=== PATIENT | female | born 2000 | race Caucasian/White ===

== ENCOUNTER 2019-02-02 18:47 | Emergency (ER) | payer OTHER ==
--- NOTE | 2019-02-02 19:38 | ER Document Report ---
ED Medical Screen (RME) - General Chief Complaint: Abdominal Pain Stated Complaint: ABDOMINAL PAIN Time Seen by Provider: 02/02/19 19:31 Notes: 18-year-old female patient learned she was 2 weeks ago. States she has had lower abdominal pain and cramping for 10 days without bleeding. She cannot get into the [facility] to be seen so she came here to get an ultrasound. Last menstrual period was 12/13/2018. She is A0. I have greeted and performed a rapid initial assessment of this patient. A comprehensive ED assessment and evaluation of the patient, analysis of test results and completion of the medical decision making process will be conducted by additional ED providers. - Related Data Allergies/Adverse Reactions: No Known Allergies Allergy (Unverified 02/02/19 18:50) Past Medical History - Social History Frequency of alcohol use: None Drug Abuse: None Renal/ Medical History: Denies: Hx Peritoneal Dialysis Physical Exam - Vital signs Vitals: Temp Pulse Resp BP Pulse Ox 98.9 F 91 H 20 114/81 98 02/02/19 18:52 02/02/19 18:52 02/02/19 18:52 02/02/19 18:52 02/02/19 18:52 Course - Vital Signs Vital signs: Temp Pulse Resp BP Pulse Ox 98.9 F 91 H 20 114/81 98 02/02/19 18:52 02/02/19 18:52 02/02/19 18:52 02/02/19 18:52 02/02/19 18:52
[2019-02-02 20:14] LABS: ABSOLUTE EOSINOPHILS # (AUTO) 0.1 10^3/uL (0.0-0.6); ABSOLUTE LYMPHOCYTES (AUTO) 2.5 10^3/uL (0.5-4.7); ABSOLUTE MONOCYTES (AUTO) 0.5 10^3/uL (0.1-1.4); BASOPHILS % (AUTO) 0.6 % (0-2); HEMATOCRIT 35.4 % (36.0-47.0); HEMOGLOBIN 12.1 g/dL (12.0-15.5); LYMPHOCYTES % (AUTO) 34.8 % (13-45); MEAN CORPUSCULAR HEMOGLOBIN 30.1 pg (27.0-33.4); MEAN CORPUSCULAR HGB CONC 34.3 g/dL (32.0-36.0); MEAN CORPUSCULAR VOLUME 88 fl (80-97); MONOCYTES % (AUTO) 7.1 % (3-13); PLATELET COUNT 282 10^3/uL (150-450); RED BLOOD COUNT 4.04 10^6/uL (3.72-5.28); RED CELL DISTRIBUTION WIDTH 13.2 % (11.5-14.0); SEGMENTED NEUTROPHILS % (AUTO) 55.5 % (42-78); TOTAL CELLS COUNTED % (AUTO) 100 %; WHITE BLOOD COUNT 7.3 10^3/uL (4.0-10.5)
[2019-02-02 20:31] LABS: ALANINE AMINOTRANSFERASE 34 U/L (5-35); ALBUMIN 3.6 g/dL (3.7-5.6); ALKALINE PHOSPHATASE 45 U/L (50-135); ANION GAP 9 (5-19); ASPARTATE AMINO TRANSFERASE 16 U/L (5-30); BILIRUBIN,DIRECT 0.1 mg/dL (0.0-0.4); BILIRUBIN,TOTAL 0.1 mg/dL (0.2-1.3); BLOOD UREA NITROGEN 11 mg/dL (7-20); CALCIUM 9.4 mg/dL (8.4-10.2); CARBON DIOXIDE 27 mmol/L (22-30); CHLORIDE 102 mmol/L (98-107); GLUCOSE 90 mg/dL (75-110); POTASSIUM 3.8 mmol/L (3.6-5.0); SODIUM 138.2 mmol/L (137-145); TOTAL PROTEIN 6.7 g/dL (6.3-8.2)
--- NOTE | 2019-02-02 22:11 | ER Document Report ---
ED General - General Chief Complaint: Abdominal Pain Stated Complaint: ABDOMINAL PAIN Time Seen by Provider: 02/02/19 19:31 Mode of Arrival: Ambulatory Information source: Patient TRAVEL OUTSIDE OF THE [place] IN LAST 30 DAYS: No - HPI Patient complains to provider of: Left lower abdominal cramping Onset: Other - About 10 days ago Onset/Duration: Intermittent Quality of pain: Cramping Severity: Severe Pain Level: 4 Associated symptoms: denies: Chills, Fever Exacerbated by: Denies Relieved by: Denies Similar symptoms previously: No Recently seen / treated by doctor: No Notes: 18-year-old female 2 para 1 here with left lower abdominal pelvic cramping which is been intermittent for the past 10 days. Patient is not having any vaginal bleeding. She thinks that she is about 8 weeks along in her second . Has not seen OB yet. No fevers or shaking chills. No dysuria. No vaginal discharge. No flank pain. No nausea vomiting or diarrhea - Related Data Allergies/Adverse Reactions: No Known Allergies Allergy (Unverified 02/02/19 18:50) Past Medical History - General Information source: Patient - Social History Smoking Status: Current Every Day Smoker Frequency of alcohol use: None Drug Abuse: None Family History: Reviewed & Not Pertinent Patient has suicidal ideation: No Patient has homicidal ideation: No Renal/ Medical History: Denies: Hx Peritoneal Dialysis Review of Systems - Review of Systems Notes: Constitutional: No fevers. No chills. EENT: No eye redness. No eye pain. No ear pain. No sore throat. Cardiovascular: No chest pain. No palpitations. Respiratory: No cough. No shortness of breath. No respiratory distress. Gastrointestinal: No abdominal pain. No nausea, vomiting, or diarrhea. Genitourinary: Positive pelvic cramping Musculoskeletal: Atraumatic. No swelling. No deformities. Skin: No rash or lesions. Lymphatic: No swollen lymph nodes. Neurologic: No headache. No syncope. Psychiatric: No suicidal or homicidal ideation. Physical Exam - Vital signs Vitals: Temp Pulse Resp BP Pulse Ox 98.9 F 91 H 20 114/81 98 02/02/19 18:52 02/02/19 18:52 02/02/19 18:52 02/02/19 18:52 02/02/19 18:52 - Notes Notes: General: Well-developed, well-nourished. In no acute distress. Non-toxic appearing. Cardiac: Well-perfused. Regular rate and rhythm. No murmurs, rubs, or gallops. Pulmonary: No respiratory distress. No cyanosis. Bilateral lung fiels are clear to auscultation. Abdominal: Non-distended. Non-rigid. Bowels sounds are present in all four quadrants. No guarding or rebound. HEENT: Head is atraumatic. Conjunctivae not reddened. No tearing. PERRL. EOMI. Orbits atraumatic. No periorbital swelling or erythema. Oropharynx is without erythema, swelling, or exudates. Neck: Supple. No adenopathy. No meningismus. Dermatologic: Warm with good turgor. No rash. Atraumatic. Chest: Atraumatic. No chest wall tenderness to palpation. Musculoskeletal: Moves all extremities well. No range of motion deficits. no muscular or joint tenderness. No paraspinal muscle tenderness. no midline spinal tenderness or step-off. Genitourinary: Examination deferred per patient request Neurologic: No gross neurologic deficits. Psychiatric: Normal mood. Course - Re-evaluation Re-evalutation: 02/02/19 22:10 Patient is relatively comfortable right now. Ultrasound results are pending. Some labs are still pending. Obvious differential at this time is uneventful intrauterine versus ectopic - Vital Signs Vital signs: Temp Pulse Resp BP Pulse Ox 98.9 F 91 H 20 114/81 98 02/02/19 18:52 02/02/19 18:52 02/02/19 18:52 02/02/19 18:52 02/02/19 18:52 - Laboratory Result Diagrams: 02/02/19 19:53 02/02/19 19:53 Laboratory results interpreted by me: 02/02/19 02/02/19 19:53 19:53 Hct 35.4 L Total Bilirubin 0.1 L Alkaline Phosphatase 45 L Albumin 3.6 L Beta HCG, Quant 7772.60 H - Consults dr mi-ob Time consulted: 23:20 Reason for consultation: 02/02/19 23:20 abnl ob us Consulted provider: follow-up in office - Would like to see the patient either tomorrow or no later than Thursday for repeat ultrasound. Discharge - Discharge Clinical Impression: Abdominal cramping, Intrauterine Condition: Good Disposition: HOME, SELF-CARE Instructions: Abdominal Pain ([facility]), Pelvic Pain in ([facility]) Additional Instructions: Please be sure to set up an appointment in the office of Dr. Mi who is on- call for obstetrics. He wants to see you on and no later than Thursday. Referrals: GABBY MI MD [ACTIVE STAFF] - Follow up tomorrow
--- NOTE | 2019-02-02 22:43 | RADIOLOGY REPORT (SQ) ---
EXAM DESCRIPTION: US TRANSVAGINAL COMPLETED DATE/TME: 02/02/2019 19:37 CLINICAL HISTORY: 18 years, Female, LMP 1-28-19 abdominal pain, cramping. Findings: Uterus is retroverted and measures 8.3 x 6.3 x 5.5 cm. Cervix measures 2.7 cm. A gestational sac is suspected in the uterus. However, there is no pole identified. Right ovary measures 2.7 x 1.5 x 1.9 cm. Left ovary measures 3.7 x 3.0 x 3.4 cm. In the left adnexa, there is moderate free fluid. There is also a complex cystic lesion which may represent a gestational sac with a pole measuring five weeks and five days. No heart rate is identified. Possible yolk sac in this region as well. IMPRESSION: Possible left adnexal ectopic with no heart tones identified. Possible early IUP or spontaneous . Recommend correlation with beta-hCG levels.
[2019-02-02 23:45] VITALS: BP 116/80
== END 2019-02-02 23:46 | disposition home or self-care (01) ==
LOC: ER 18:47
DX: O26.899 Other specified pregnancy related conditions, unspecified trimester (principal); R10.2 Pelvic and perineal pain; O99.330 Smoking (tobacco) complicating pregnancy, unspecified trimester; Z3A.00 Weeks of gestation of pregnancy not specified
CPT/HCPCS: 36415; 76817; 80053; 84702; 85025; 86900; 86901; 99284

== ENCOUNTER 2019-08-13 22:39 | Outpatient (CLI) | payer OTHER ==
[2019-08-14 00:52] LABS: APPEARANCE,URINE CLOUDY; BILIRUBIN,URINE NEGATIVE (NEGATIVE); CALCIUM OXALATE CRYSTALS,URINE FEW /HPF; GLUCOSE, URINE NEGATIVE (NEGATIVE); KETONES,URINE NEGATIVE (NEGATIVE); LEUKOCYTE ESTERASE,URINE TRACE (NEGATIVE); NITRITE,URINE NEGATIVE (NEGATIVE); PROTEIN,URINE NEGATIVE (NEGATIVE); URINE SPECIFIC GRAVITY 1.021
[2019-08-14 00:53] LABS: COLOR,URINE DARK YELLOW
[2019-08-14 01:10] LABS: URINE AMPHETAMINES SCREEN NEGATIVE; URINE BARBITURATES SCREEN NEGATIVE; URINE BENZODIAZEPINES SCREEN NEGATIVE; URINE COCAINE SCREEN NEGATIVE; URINE MARIJUANA (THC) SCREEN NEGATIVE; URINE METHADONE SCREEN NEGATIVE; URINE PHENCYCLIDINE SCREEN NEGATIVE
--- NOTE | 2019-08-14 01:12 | Non Stress Test Report ---
Non Stress Test Datetime Report Generated by CPN: 08/14/2019 01:12 DEMOGRAPHIC EGA NST: 33.2 INDICATION Indication for Study: Other Indication for Study (NST) Other: labor check MONITORING Monitor Explained: Monitor Explained; Test Explained; Patient Verbalized Understanding Time on Monitor: 08/13/2019 22:59 Time off Monitor: 08/14/2019 00:45 NST Duration: 106 NST INTERVENTIONS NST Interventions: PO Hydration Physician Notified NST: Drake BABY A: [id number] BABY A Movement : Present Contraction Frequency : occ FHR Baseline : 120 Accelerations : 15X15 Decelerations : None Variability : Moderate 6-25bpm NST Review: Meets Criteria for Reactive NST NST Review and Verified By : Ángel Yin, RN NST Results: Reactive NST REPORT Report Trigger: Send Report
== END 2019-08-14 01:03 | disposition home or self-care (01) ==
LOC: LC 22:39
PROVIDERS: ATTEND Obstetrics & Gynecology
PROC: 4A1HXCZ Monitoring of Products of Conception, Cardiac Rate, External Approach (ICD-10-PCS; principal; 2019-08-13)
DX: O47.03 False labor before 37 completed weeks of gestation, third trimester (principal); Z3A.33 33 weeks gestation of pregnancy
CPT/HCPCS: 59025; 80307; 81001

== ENCOUNTER 2019-09-07 20:31 | Outpatient (CLI) | payer OTHER ==
[2019-09-07 21:25] LABS: APPEARANCE,URINE SLIGHTLY-CLOUDY; BILIRUBIN,URINE SMALL (NEGATIVE); COLOR,URINE AMBER; GLUCOSE, URINE NEGATIVE (NEGATIVE); KETONES,URINE TRACE mg/dL (NEGATIVE); LEUKOCYTE ESTERASE,URINE SMALL (NEGATIVE); NITRITE,URINE NEGATIVE (NEGATIVE); PROTEIN,URINE 30 mg/dL (NEGATIVE); URINE SPECIFIC GRAVITY 1.033
--- NOTE | 2019-09-07 21:32 | Non Stress Test Report ---
Non Stress Test Datetime Report Generated by CPN: 09/07/2019 21:32 DEMOGRAPHIC EGA NST: 36.6 INDICATION Indication for Study: Other - Please document "Reason for NST Other" in box below. Indication for Study (NST) Other: lc VITAL SIGNS Temperature - NST: 98.3 RESP - NST: 15 MONITORING Monitor Explained: Monitor Explained; Test Explained; Patient Verbalized Understanding Time on Monitor: 09/07/2019 21:10 Time off Monitor: 09/07/2019 21:31 NST Duration: 21 NST INTERVENTIONS NST Interventions: PO Hydration; Reposition Patient Physician Notified NST: Dr Mccullough BABY A: [id number] BABY A Movement : Present Contraction Frequency : irr FHR Baseline : 120 Accelerations : 15X15 Decelerations : None Variability : Moderate 6-25bpm NST Review: Meets Criteria for Reactive NST NST Review and Verified By : Samantha Ayala RN NST Results: Reactive NST REPORT Report Trigger: Send Report
[2019-09-07 21:37] LABS: URINE AMPHETAMINES SCREEN NEGATIVE; URINE BARBITURATES SCREEN NEGATIVE; URINE BENZODIAZEPINES SCREEN NEGATIVE; URINE MARIJUANA (THC) SCREEN NEGATIVE; URINE METHADONE SCREEN NEGATIVE; URINE PHENCYCLIDINE SCREEN NEGATIVE
[2019-09-07 21:53] LABS: URINE COCAINE SCREEN NEGATIVE
== END 2019-09-07 22:19 | disposition home or self-care (01) ==
LOC: LC 20:31
PROVIDERS: ATTEND Obstetrics & Gynecology
PROC: 4A1HXCZ Monitoring of Products of Conception, Cardiac Rate, External Approach (ICD-10-PCS; principal; 2019-09-07)
DX: O47.03 False labor before 37 completed weeks of gestation, third trimester (principal); Z3A.36 36 weeks gestation of pregnancy
CPT/HCPCS: 59025; 80307; 81005; 84112

== ENCOUNTER 2019-09-13 19:12 | Outpatient (CLI) | payer OTHER ==
[2019-09-13 19:48] LABS: APPEARANCE,URINE CLEAR; BILIRUBIN,URINE NEGATIVE (NEGATIVE); COLOR,URINE STRAW; GLUCOSE, URINE NEGATIVE (NEGATIVE); KETONES,URINE NEGATIVE (NEGATIVE); LEUKOCYTE ESTERASE,URINE NEGATIVE (NEGATIVE); NITRITE,URINE NEGATIVE (NEGATIVE); PROTEIN,URINE NEGATIVE (NEGATIVE); URINE SPECIFIC GRAVITY 1.002; UROBILINOGEN,URINE NEGATIVE mg/dL (<2.0)
[2019-09-13 20:04] LABS: URINE AMPHETAMINES SCREEN NEGATIVE; URINE BARBITURATES SCREEN NEGATIVE; URINE BENZODIAZEPINES SCREEN NEGATIVE; URINE COCAINE SCREEN NEGATIVE; URINE MARIJUANA (THC) SCREEN NEGATIVE; URINE METHADONE SCREEN NEGATIVE; URINE PHENCYCLIDINE SCREEN NEGATIVE
--- NOTE | 2019-09-13 20:19 | Non Stress Test Report ---
Non Stress Test Datetime Report Generated by CPN: 09/13/2019 20:19 DEMOGRAPHIC EGA NST: 37.5 INDICATION Indication for Study: Ordered by Provider MONITORING Monitor Explained: Monitor Explained; Test Explained; Patient Verbalized Understanding Time on Monitor: 09/13/2019 19:23 Time off Monitor: 09/13/2019 20:13 NST Duration: 50 NST INTERVENTIONS NST Interventions: PO Hydration Physician Notified NST: Dr. Vincent BABY A: [id number] BABY A Movement : Present Contraction Frequency : irregular FHR Baseline : 125 Accelerations : 15X15 Decelerations : None Variability : Moderate 6-25bpm NST Review: Meets Criteria for Reactive NST NST Review and Verified By : SUMANTH Alex Results: Reactive NST REPORT Report Trigger: Send Report
== END 2019-09-13 21:30 | disposition home or self-care (01) ==
LOC: LC 19:12
PROVIDERS: ATTEND Student in an Organized Health Care Education/Training Program
PROC: 4A1HXCZ Monitoring of Products of Conception, Cardiac Rate, External Approach (ICD-10-PCS; principal; 2019-09-13)
DX: O47.1 False labor at or after 37 completed weeks of gestation (principal); Z3A.37 37 weeks gestation of pregnancy
CPT/HCPCS: 59025; 80307; 81005; 84112

== ENCOUNTER 2019-09-16 10:37 | Outpatient (CLI) | payer OTHER ==
[2019-09-16 11:16] LABS: APPEARANCE,URINE SLIGHTLY-CLOUDY; BILIRUBIN,URINE NEGATIVE (NEGATIVE); COLOR,URINE YELLOW; GLUCOSE, URINE NEGATIVE (NEGATIVE); KETONES,URINE NEGATIVE (NEGATIVE); LEUKOCYTE ESTERASE,URINE SMALL (NEGATIVE); NITRITE,URINE NEGATIVE (NEGATIVE); PROTEIN,URINE NEGATIVE (NEGATIVE); URINE SPECIFIC GRAVITY 1.014; UROBILINOGEN,URINE NEGATIVE mg/dL (<2.0)
[2019-09-16 11:31] LABS: URINE AMPHETAMINES SCREEN NEGATIVE; URINE BARBITURATES SCREEN NEGATIVE; URINE BENZODIAZEPINES SCREEN NEGATIVE; URINE COCAINE SCREEN NEGATIVE; URINE MARIJUANA (THC) SCREEN NEGATIVE; URINE METHADONE SCREEN NEGATIVE; URINE PHENCYCLIDINE SCREEN NEGATIVE
--- NOTE | 2019-09-16 11:46 | Non Stress Test Report ---
Non Stress Test Datetime Report Generated by CPN: 09/16/2019 11:46 DEMOGRAPHIC EGA NST: 38.1 INDICATION Indication for Study: Ordered by Provider MONITORING Monitor Explained: Monitor Explained; Test Explained; Patient Verbalized Understanding Time on Monitor: 09/16/2019 10:53 NST INTERVENTIONS NST Interventions: PO Hydration Physician Notified NST: K. Hobbs CNM on unit, reviewed fht BABY A: [id number] BABY A Movement : Present Contraction Frequency : 0 FHR Baseline : 125 Accelerations : 15X15 Decelerations : None Variability : Moderate 6-25bpm NST Review: Meets Criteria for Reactive NST NST Review and Verified By : Yung Moore RN NST Results: Reactive NST REPORT Report Trigger: Send Report
== END 2019-09-16 11:48 | disposition home or self-care (01) ==
LOC: LC 10:37
PROVIDERS: ATTEND Obstetrics & Gynecology
PROC: 4A1HXCZ Monitoring of Products of Conception, Cardiac Rate, External Approach (ICD-10-PCS; principal; 2019-09-16)
DX: Z34.83 Encounter for supervision of other normal pregnancy, third trimester (principal); Z3A.38 38 weeks gestation of pregnancy
CPT/HCPCS: 59025; 80307; 81005; 84112

== ENCOUNTER 2019-09-28 21:32 | Inpatient (IN) | payer OTHER ==
[2019-09-28 22:18] LABS: APPEARANCE,URINE SLIGHTLY-CLOUDY; BILIRUBIN,URINE NEGATIVE (NEGATIVE); COLOR,URINE YELLOW; GLUCOSE, URINE NEGATIVE (NEGATIVE); KETONES,URINE NEGATIVE (NEGATIVE); LEUKOCYTE ESTERASE,URINE SMALL (NEGATIVE); NITRITE,URINE NEGATIVE (NEGATIVE); PROTEIN,URINE NEGATIVE (NEGATIVE); URINE SPECIFIC GRAVITY 1.011
[2019-09-28 22:35] LABS: URINE AMPHETAMINES SCREEN NEGATIVE; URINE BARBITURATES SCREEN NEGATIVE; URINE BENZODIAZEPINES SCREEN NEGATIVE; URINE COCAINE SCREEN NEGATIVE; URINE MARIJUANA (THC) SCREEN NEGATIVE; URINE METHADONE SCREEN NEGATIVE; URINE PHENCYCLIDINE SCREEN NEGATIVE
[2019-09-28] MEDS ORDERED: RINGERS SOLUTION,LACTATED 1,000 ML IV ONE (23:37)
--- NOTE | 2019-09-29 02:20 | RADIOLOGY REPORT (SQ) ---
CLINICAL HISTORY: nonreactive NST COMPARISON: None. TECHNIQUE: US BIOPHYSICAL PROFILE WITHOUT NON STRESS TEST on 09/29/2019 12:00 AM BIOFUELS PRODUCTION TECHNICIAN FINDINGS: heart rate is 139 bpm. There is a single pocket of amniotic fluid measuring 2.4 x 3.3 cm. IMPRESSION: Biophysical profile 06/23.
[2019-09-29] MEDS ORDERED: RINGERS SOLUTION,LACTATED 1,000 ML IV PRN (02:42)
[2019-09-29] MEDS ORDERED: MISOPROSTOL 0.2 MG TABLET ONE (02:47)
[2019-09-29] MEDS ORDERED: LIDOCAINE 1% INJ-PF (10 MG/ML) 30 ML SDV ONE (02:47)
[2019-09-29] MEDS ORDERED: OXYTOCIN 10 UNIT/ML VIAL ONE (02:47)
[2019-09-29] MEDS ORDERED: OXYTOCIN/NORMAL SALINE 20 UNIT/1,000 ML RTUINJ ONE (02:48)
[2019-09-29 03:12] LABS: ABSOLUTE EOSINOPHILS # (AUTO) 0.1 10^3/uL (0.0-0.6); ABSOLUTE LYMPHOCYTES (AUTO) 2.3 10^3/uL (0.5-4.7); ABSOLUTE MONOCYTES (AUTO) 0.5 10^3/uL (0.1-1.4); ABSOLUTE NEUT (AUTO) 5.5 10^3/uL (1.7-8.2); BASOPHILS % (AUTO) 0.5 % (0-2); EOSINOPHILS % (AUTO) 1.1 % (0-6); HEMATOCRIT 33.9 % (36.0-47.0); HEMOGLOBIN 11.4 g/dL (12.0-15.5); LYMPHOCYTES % (AUTO) 27.5 % (13-45); MEAN CORPUSCULAR HEMOGLOBIN 29.3 pg (27.0-33.4); MEAN CORPUSCULAR HGB CONC 33.7 g/dL (32.0-36.0); MEAN CORPUSCULAR VOLUME 87 fl (80-97); PLATELET COUNT 246 10^3/uL (150-450); RED BLOOD COUNT 3.89 10^6/uL (3.72-5.28); RED CELL DISTRIBUTION WIDTH 15.7 % (11.5-14.0); SEGMENTED NEUTROPHILS % (AUTO) 64.9 % (42-78); TOTAL CELLS COUNTED % (AUTO) 100 %; WHITE BLOOD COUNT 8.5 10^3/uL (4.0-10.5)
--- NOTE | 2019-09-29 03:20 | Admission Physical ---
Datetime Report Generated by CPN: 09/29/2019 03:19 CURRENT ADMISSION Chief Complaint: Uterine Contractions Indication for Induction: Not Applicable Admit Impression : Term, Intrauterine ; Ruptured Membranes Admit Plan: Admit to Unit; Initiate Labor Protocol ALLERGIES Medication Allergies: No Medication Allergies: No Known Allergies (09/28/2019) Latex: No Latex Allergies Food Allergies: no Environmental Allergies: no OBSTETRICAL HISTORY EDC: 09/29/2019 00:00 : 2 Para: 1 Term: 1 : 0 SAB: 0 IAB: 0 Ectopic: 0 Livin Cesareans: 0 VBACs: 0 Multiple Births: 0 Gestational Diabetes: No Rh Sensitization: No Incompetent Cervix: No GHAZALA: No Infertility: No ART Treatment: No Uterine Anomaly: No IUGR: No Hx Previous C/S: No Macrosomia: No Hx Loss/Stillborn: No PIH: No Hx : No Placenta Previa/Abruption: No Depression/PP Depression: No PTL/PROM: No Post Hemorrhage: No Current Procedures: Ultrasound; NST Obstetrical History Comments: g1- 41 weeks 07/04 - - epidural g2 - current - close interval SEE RECORDS Alcohol: No Marijuana : No Cocaine: No Other Illicit Drugs: No Cigarettes: Former Smoker. [id number] MEDICAL HISTORY Diabetes: No Blood Transfusion: No Pulmonary Disease (Asthma, TB): No Breast Disease: No Hypertension: No Flume Maker Surgery: No Heart Disease: Yes Hosp/Surgery: No Autoimmune Disorder: No Anesthetic Complications: No Kidney Disease: No Abnormal Pap Smear: No Neuro/Epilepsy: No Psychiatric Disorders: No Other Medical Diseases: No Hepatitis/Liver Disease: No Significant Family History: No Varicosities/Phlebitis: No Trauma/Violence : No Thyroid Dysfunction: No Medical History Comments: rhuematic fever as a child - takes PCN BID (Annotations: Data stored by [facility] on behalf of user) INFECTIOUS HISTORY Gonorrhea: No Genital Herpes: No Chlamydia: No Tuberculosis: No Syphilis: No Hepatitis: No HIV/AIDS Exposure: No Rash or Viral Illness: No HPV: No PHYSICAL EXAM General: Normal HEENT: Normal Neurologic: Normal Thyroid: Normal Heart: Normal Lungs: Normal Breast: Normal Back: Normal Abdomen: Normal Genitourinary Exam: Normal Extremities: Normal DTRs: Normal Pelvic Type: Adequate Vital Signs: Reviewed; Within Normal Limits VAGINAL EXAM Dilatation: 5 Effacement: 90 Station: -2 Contraction Comments: irregular MEMBRANES Pooling: Negative Membranes: Ruptured Amniotic Fluid Color: Clear FETUS A EGA: 40.0 Monitoring: External US FHR- Baseline: 130s Variability: Moderate 6-25bpm Accelerations: 10X10 Decelerations: None FHR Category: Category I Admit Comment: w/IUP@ 40.0 presented to L_D c/o contractions. FHTs were not reactive therefore she underwent a BPP, which was 06/23. Prior to discharge, she had SROM. Clear fluid was noted. She is GBS Neg. PLANS FOR LABOR AND DELIVERY Labor and Delivery: None Pain Management: Epidural Feeding Preference: Formula Benefit of Breast Feed Discussed: Yes Circumcision: N/A INFORMED CONSENT Signature: with User ID: [email or web address]
[2019-09-29] MEDS ORDERED: EPHEDRINE SULFATE INJ 50 MG/1 ML AMPULE ONE (03:27)
[2019-09-29] MEDS ORDERED: FENTANYL/BUPIVACAINE/NS/PF 300 MCG/150 ML RTUINJ EPI ONE (03:28)
[2019-09-29] MEDS ORDERED: BUPIVACAINE HCL 0.25 % INJ/PF (2.5 MG/1 ML) 30 ML VIAL ONE (03:28)
[2019-09-29] MEDS ORDERED: FENTANYL CITRATE INJ/PF 100 MCG/2 ML AMPUL ONE (03:44)
[2019-09-29] MEDS ORDERED: OXYTOCIN/NORMAL SALINE 20 UNIT/1,000 ML RTUINJ IV PRN (05:30)
[2019-09-29] MEDS ORDERED: DIPH/PERTUSS(ACELL)/TETANUS VAC/PF 0.5 ML SYR (>=10YO) IM PRN (05:30)
[2019-09-29] MEDS ORDERED: ACETAMINOPHEN WITH CODEINE #3 TABLET PO PRN ×2 (05:30)
[2019-09-29] MEDS ORDERED: ZOLPIDEM TARTRATE 5 MG TABLET PO PRN (05:30)
[2019-09-29] MEDS ORDERED: BENZOCAINE/MENTHOL AEROSOL SPRAY 56 ML TOP PRN (05:30)
[2019-09-29] MEDS ORDERED: DIBUCAINE 1% OINTMENT 56 GM TP PRN (05:30)
--- NOTE | 2019-09-29 07:16 | Delivery Summary ---
Del Sum A-C Datetime Report Generated by CPN: 09/29/2019 07:16 DELIVERY PERSONNEL DELIVERY PERSONNEL: [id number] Delivery Doctor:: Damaris Childers MD Labor and Delivery Nurse:: Samantha Ayala RNmanager floral Nurse:: Adri Elizabeth RN Lottery Clerk:: Belen Hernandez RN Nursery Nurse:: Nina Hernandez RN Biology Tutor/SENIOR ARCHITECTURAL DESIGNER: Berenice Adames, ST MATERNAL INFORMATION Delivery Anesthesia: Epidural Medications After Delivery: Pitocin Bolus-Please Comment Meds After Delivery Comment: Pitocin 20 units/1000 ml NSS Delivery QBL: 0 Maternal Complications: None Provider Comments: of a viable female at 0513 w/ an OA w/ nuchal cord x 1 presentation; APGARS 8, 9; no lacs LABOR SUMMARY EDC: 09/29/2019 00:00 No. Babies in Womb: 1 Attempted: No Labor Anesthesia: Epidural LABOR INFORMATION Reason for Induction: Not Applicable Onset of Labor: 09/29/2019 02:35 Complete Dilatation: 09/29/2019 05:01 Oxytocin: N/A Group B Beta Strep: negative Antibiotics # of Doses: 0 Steroids Given: None Reason Steroids Not Administered: Not Applicable MEMBRANES Membranes Rupture Method: Spontaneous Rupture of Membranes: 09/29/2019 02:35 Length of Rupture (hr): 2.63 Amniotic Fluid Color: Clear Amniotic Fluid Amount: Moderate Amniotic Fluid Odor: Normal STAGES OF LABOR Stage 1 hr: 2 Stage 1 min: 26 Stage 2 hr: 0 Stage 2 min: 12 Stage 3 hr: 0 Stage 3 min: 5 Total Time in Labor hr: 2 Total Time in Labor min: 43 VAGINAL DELIVERY Episiotomy: None Laceration #1: None Laceration Extension #1: N/A Laceration Repair: Not Applicable Sponge Count Correct: Yes Sharps Count Correct: Yes CSECTION DELIVERY Primary Indication: N/A Secondary Indication: N/A CSection Incidence: N/A Labor: N/A Elective: N/A CSection Incision: N/A BABY A INFORMATION Delivery Date/Time: 09/29/2019 05:13 Method of Delivery: Vaginal Born in Route : No : N/A Forceps: N/A Vacuum Extraction: N/A Shoulder Dystocia : No PRESENTATION/POSITION BABY A Presentation: Cephalic Cephalic Presentation: Vertex Vertex Position: OA Breech Presentation: N/A PLACENTA INFORMATION BABY A Placenta Delivery Time : 09/29/2019 05:18 Placenta Method of Delivery: Spontaneous Placenta Status: Delivered SCORES BABY A Heart Rate 1 min: >100 bpm Resp Effort 1 min: Good Cry Reflex Irritability 1 min: Cough or Sneeze or Pulls Away Muscle Tone 1 min: Active Motion Color 1 min: Blue/Pale Resuscitation Effort 1 min: Tactile Stimulation SCORE 1 MIN: 8 Heart Rate 5 min: >100 bpm Resp Effort 5 min: Good Cry Reflex Irritability 5 min: Cough or Sneeze or Pulls Away Muscle Tone 5 min: Active Motion Color 5 min: Body [place], Extremities Blue Resuscitation Effort 5 min: Tactile Stimulation SCORE 5 MIN: 9 INFANT INFORMATION BABY A Gestational Age at Delivery: 40.0 Gestational Status: Full Term- 39- 40.6 Weeks Outcome : Liveborn Infant Condition : Stable Sex: Female IDENTIFICATION BABY A Verification Date/Time: 09/29/2019 05:35 ID Band Number: [id number] Mother's Name Verified: Yes Infant RN Verifying Infant: , RN and KFay, RN WEIGHT/LENGTH BABY A Birthweight (gm): 3363 Infant Weight (lb): 7 Infant Weight (oz): 7 Infant Length (in): 19.00 Length (cm): 48.26 CORD INFORMATION BABY A No. Cord Vessels: 3 Nuchal Cord : Around Neck x1, Loose Cord Blood Taken: Yes-For Storage (Mom's Blood type +) Suction: None ASSESSMENT BABY A Infant Complications: None Physical Findings at Delivery: Within Normal Limits Skin to Skin: Yes Infant Care By: SUMANTH Castrejon Transferred To: Remains with Mother SIGNATURES Signature: with User ID: [email or web address]
[2019-09-29] MEDS: FERROUS SULFATE 325 MG TABLET PO SCH ×2 (11:00→18:28)
[2019-09-29] MEDS: SENNOSIDES/DOCUSATE 8.6-50 MG 1 EACH TABLET PO SCH (11:00)
[2019-09-29] MEDS: PRENATAL VITAMIN W DHA CAPSULE PO SCH (11:00)
[2019-09-29] MEDS: DOCUSATE SODIUM 100 MG CAPSULE PO SCH ×2 (11:00→18:27)
[2019-09-29] MEDS: IBUPROFEN 800 MG TABLET PO SCH ×3 (11:06→22:22)
[2019-09-30] MEDS: IBUPROFEN 800 MG TABLET PO SCH ×3 (05:42→22:39)
[2019-09-30 08:12] LABS: HEMATOCRIT 30.9 % (36.0-47.0); HEMOGLOBIN 10.3 g/dL (12.0-15.5); MEAN CORPUSCULAR HEMOGLOBIN 29.5 pg (27.0-33.4); MEAN CORPUSCULAR HGB CONC 33.5 g/dL (32.0-36.0); MEAN CORPUSCULAR VOLUME 88 fl (80-97); PLATELET COUNT 177 10^3/uL (150-450); RED CELL DISTRIBUTION WIDTH 15.8 % (11.5-14.0); WHITE BLOOD COUNT 7.7 10^3/uL (4.0-10.5)
[2019-09-30] MEDS: PRENATAL VITAMIN W DHA CAPSULE PO SCH (09:57)
[2019-09-30] MEDS: FERROUS SULFATE 325 MG TABLET PO SCH ×2 (09:57→18:11)
[2019-09-30] MEDS: DOCUSATE SODIUM 100 MG CAPSULE PO SCH ×2 (10:47→18:11)
[2019-09-30] MEDS: SENNOSIDES/DOCUSATE 8.6-50 MG 1 EACH TABLET PO SCH (10:47)
--- NOTE | 2019-09-30 12:45 | PDOC PROGRESS REPORT ---
Subjective-OB Progress Note for:: 09/30/19 Subjective: reports bleeding slowing, pain controlled with current meds, denies needs Physical Exam (OB) Vital Signs: Temp Pulse Resp BP Pulse Ox 97.7 F 69 14 115/84 98 09/30/19 07:39 09/30/19 07:39 09/30/19 07:39 09/30/19 07:39 09/30/19 07:39 Intake & Output 09/29/19 09/30/19 10/01/19 06:59 06:59 06:59 Weight 115 kg 115 kg - Abdomen Description: Soft, Round Hernia Present: No Fundal Description: Firm, Midline Fundal Height: u/u - u/2 - Abdominal Distension: No distension Tenderness: Nontender - Extremities Lower extremities: Chavez's sign - neg Calf: Normal, Nontender Objective-Diagnostic Laboratory: 09/30/19 07:28 09/30/19 07:28 WBC 7.7 RBC 3.50 L Hgb 10.3 L Hct 30.9 L MCV 88 MCH 29.5 MCHC 33.5 RDW 15.8 H Plt Count 177 Assessment and Plan(PN) - Assessment and Plan (1) Normal vaginal delivery Is this a current diagnosis for this admission?: Yes (2) Spontaneous onset of labor Is this a current diagnosis for this admission?: Yes - Time Spent with Patient Time with patient: Less than 15 minutes Medications reviewed and adjusted accordingly: Yes - Disposition Anticipated Discharge: Home Within: within 24 hours
[2019-10-01] MEDS: IBUPROFEN 800 MG TABLET PO SCH (06:18)
--- NOTE | 2019-10-01 08:48 | PDOC DISCHARGE SUMMARY ---
Impression - Admit/DC Date/PCP Admission Date/Primary Care Provider: 09/29/19 02:42 ISAAK OCHOA DO Discharge Date: 10/01/19 - Discharge Diagnosis (1) Normal vaginal delivery Is this a current diagnosis for this admission?: Yes (2) Spontaneous onset of labor Is this a current diagnosis for this admission?: Yes - Additional Information Discharge Activity: Balance Activity w/Rest, Non-Ambulatory Child Referrals: ISAAK MOJICA DO [Primary Care Provider] - Prescriptions: Ibuprofen [Motrin 800 mg Tablet] 800 mg PO Q8HP PRN #60 tablet PRN Reason: Home Medications: Vit,Calc76/Iron/Folic [Prenatabs Rx Tablet] 1 tab PO DAILY 09/07/19 Ibuprofen [Motrin 800 mg Tablet] 800 mg PO Q8HP PRN #60 tablet 10/01/19 HPI Gestational Age: 40 Reason(s) for Admission: Onset of Labor Procedures: NST Intrapartum Procedure(s): Spontaneous Vaginal Delivery Results Laboratory Results: WBC 7.7 10^3/uL (4.0-10.5) 09/30/19 07:28 RBC 3.50 10^6/uL (3.72-5.28) L 09/30/19 07:28 Hgb 10.3 g/dL (12.0-15.5) L 09/30/19 07:28 Hct 30.9 % (36.0-47.0) L 09/30/19 07:28 MCV 88 fl (80-97) 09/30/19 07:28 MCH 29.5 pg (27.0-33.4) 09/30/19 07:28 MCHC 33.5 g/dL (32.0-36.0) 09/30/19 07:28 RDW 15.8 % (11.5-14.0) H 09/30/19 07:28 Plt Count 177 10^3/uL (150-450) 09/30/19 07:28 Lymph % (Auto) 27.5 % (13-45) 09/29/19 02:55 [place] % (Auto) 6.0 % (3-13) 09/29/19 02:55 Eos % (Auto) 1.1 % (0-6) 09/29/19 02:55 Baso % (Auto) 0.5 % (0-2) 09/29/19 02:55 Absolute Neuts (auto) 5.5 10^3/uL (1.7-8.2) 09/29/19 02:55 Absolute Lymphs (auto) 2.3 10^3/uL (0.5-4.7) 09/29/19 02:55 Absolute Monos (auto) 0.5 10^3/uL (0.1-1.4) 09/29/19 02:55 Absolute Eos (auto) 0.1 10^3/uL (0.0-0.6) 09/29/19 02:55 Absolute Basos (auto) 0.0 10^3/uL (0.0-0.2) 09/29/19 02:55 Seg Neutrophils % 64.9 % (42-78) 09/29/19 02:55 Urine Color YELLOW 09/28/19 21:40 Urine Appearance SLIGHTLY-CLOUDY 09/28/19 21:40 Urine pH 6.0 (5.0-9.0) 09/28/19 21:40 Ur Specific [place] 1.011 09/28/19 21:40 Urine Protein NEGATIVE mg/dL (NEGATIVE) 09/28/19 21:40 Urine Glucose (UA) NEGATIVE mg/dL (NEGATIVE) 09/28/19 21:40 Urine Ketones NEGATIVE mg/dL (NEGATIVE) 09/28/19 21:40 Urine Blood NEGATIVE (NEGATIVE) 09/28/19 21:40 Urine Nitrite NEGATIVE (NEGATIVE) 09/28/19 21:40 Urine Bilirubin NEGATIVE (NEGATIVE) 09/28/19 21:40 Urine Urobilinogen 2.0 mg/dL (<2.0) H 09/28/19 21:40 Ur Leukocyte Esterase SMALL (NEGATIVE) H 09/28/19 21:40 Urine Ascorbic Acid NEGATIVE (NEGATIVE) 09/28/19 21:40 Urine Opiates Screen NEGATIVE 09/28/19 21:40 Urine Methadone Screen NEGATIVE 09/28/19 21:40 Ur Barbiturates Screen NEGATIVE 09/28/19 21:40 Ur Phencyclidine Scrn NEGATIVE 09/28/19 21:40 Ur Amphetamines Screen NEGATIVE 09/28/19 21:40 U Benzodiazepines Scrn NEGATIVE 09/28/19 21:40 Urine Cocaine Screen NEGATIVE 09/28/19 21:40 U Marijuana (THC) Screen NEGATIVE 09/28/19 21:40 RPR NONREACTIVE (NONREACTIVE) 09/29/19 02:55 Blood Type A POSITIVE 09/29/19 02:55 Antibody Screen NEGATIVE 09/29/19 02:55 Impressions: Stress Test 09/29/19 00:00 IMPRESSION: Biophysical profile 06/23. Plan Plan of Treatment: f/u 4 weeks at [facility] for PP exam
[2019-10-01] MEDS: PRENATAL VITAMIN W DHA CAPSULE PO SCH (09:02)
[2019-10-01] MEDS: FERROUS SULFATE 325 MG TABLET PO SCH (09:02)
[2019-10-01] MEDS: DOCUSATE SODIUM 100 MG CAPSULE PO SCH (09:03)
[2019-10-01 09:04] VITALS: BP 127/83
[2019-10-01] MEDS: SENNOSIDES/DOCUSATE 8.6-50 MG 1 EACH TABLET PO SCH (09:04)
== END 2019-10-01 14:07 | disposition home or self-care (01) | DRG 807 ==
LOC: LC 21:32 → LR 09-29 02:42 → 2S 09-29 08:00
PROVIDERS: ADMIT Obstetrics & Gynecology; ATTEND Obstetrics & Gynecology
PROC: 10E0XZZ Delivery of Products of Conception, External Approach (ICD-10-PCS; principal; 2019-09-29)
DX: O69.81X0 Labor and delivery complicated by cord around neck, without compression, not applicable or unspecified (principal); Z37.0 Single live birth; O62.3 Precipitate labor; Z3A.40 40 weeks gestation of pregnancy; Z79.2 Long term (current) use of antibiotics
CPT/HCPCS: 36415; 76819; 80307; 81005; 85025; 85027; 86592; 86850; 86900; 86901; J2590; J3010; J3490

== ENCOUNTER 2019-10-29 18:55 | Emergency (ER) | payer OTHER ==
--- NOTE | 2019-10-29 19:18 | ER Document Report ---
ED Medical Screen (RME) - General Stated Complaint: LEFT LEG PAIN/SWOLLEN Time Seen by Provider: 10/29/19 19:11 Primary Care Provider: ISAAK MOJICA DO [Primary Care Provider] - Follow up as needed Mode of Arrival: Wheelchair Information source: Patient Notes: This 19-year-old female presents emergency department with plaints of low back pain and left leg swelling and discoloration. Patient reports last week she had the Nexplanon implanted and they also put her on the control pill. She reports symptoms of low back pain difficulty voiding and leg swelling and discoloration started yesterday morning. Right leg feels numb now. Good pedal pulse noted. Denies history of PE or DVT. I have greeted and performed a rapid initial assessment of this patient. A comprehensive ED assessment and evaluation of the patient, analysis of test results and completion of the medical decision making process will be conducted by additional ED providers. Dictation of this chart was performed using voice recognition software; therefore, there may be some unintended grammatical errors. TRAVEL OUTSIDE OF THE [place] IN LAST 30 DAYS: No - Related Data Allergies/Adverse Reactions: No Known Allergies Allergy (Verified 10/29/19 19:07) Past Medical History Renal/ Medical History: Denies: Hx Peritoneal Dialysis Physical Exam - Vital signs Vitals: Temp Pulse Resp BP Pulse Ox 98.2 F 122 H 20 109/74 98 10/29/19 18:59 10/29/19 18:59 10/29/19 18:59 10/29/19 18:59 10/29/19 18:59 Course - Vital Signs Vital signs: Temp Pulse Resp BP Pulse Ox 98.2 F 122 H 20 109/74 98 10/29/19 18:59 10/29/19 18:59 10/29/19 18:59 10/29/19 18:59 10/29/19 18:59 Doctor's Discharge - Discharge Referrals: ISAAK MOJICA DO [Primary Care Provider] - Follow up as needed
[2019-10-29 20:12] LABS: ABSOLUTE EOSINOPHILS # (AUTO) 0.2 10^3/uL (0.0-0.6); ABSOLUTE LYMPHOCYTES (AUTO) 1.5 10^3/uL (0.5-4.7); ABSOLUTE MONOCYTES (AUTO) 0.5 10^3/uL (0.1-1.4); ABSOLUTE NEUT (AUTO) 6.5 10^3/uL (1.7-8.2); BASOPHILS % (AUTO) 0.5 % (0-2); EOSINOPHILS % (AUTO) 2.5 % (0-6); HEMATOCRIT 34.7 % (36.0-47.0); HEMOGLOBIN 11.7 g/dL (12.0-15.5); LYMPHOCYTES % (AUTO) 17.3 % (13-45); MEAN CORPUSCULAR HEMOGLOBIN 29.4 pg (27.0-33.4); MEAN CORPUSCULAR HGB CONC 33.9 g/dL (32.0-36.0); MEAN CORPUSCULAR VOLUME 87 fl (80-97); MONOCYTES % (AUTO) 5.5 % (3-13); PLATELET COUNT 286 10^3/uL (150-450); RED BLOOD COUNT 3.99 10^6/uL (3.72-5.28); RED CELL DISTRIBUTION WIDTH 15.4 % (11.5-14.0); SEGMENTED NEUTROPHILS % (AUTO) 74.2 % (42-78); TOTAL CELLS COUNTED % (AUTO) 100 %; WHITE BLOOD COUNT 8.7 10^3/uL (4.0-10.5)
[2019-10-29 20:28] LABS: ALBUMIN 3.9 g/dL (3.5-5.0); ALKALINE PHOSPHATASE 57 U/L (38-126); ANION GAP 12 (5-19); ASPARTATE AMINO TRANSFERASE 24 U/L (14-36); BILIRUBIN,DIRECT 0.1 mg/dL (0.0-0.4); BILIRUBIN,TOTAL 0.4 mg/dL (0.2-1.3); BLOOD UREA NITROGEN 8 mg/dL (7-20); CALCIUM 9.2 mg/dL (8.4-10.2); CARBON DIOXIDE 24 mmol/L (22-30); CHLORIDE 104 mmol/L (98-107); GLUCOSE 116 mg/dL (75-110); POTASSIUM 4.2 mmol/L (3.6-5.0); TOTAL PROTEIN 7.3 g/dL (6.3-8.2)
--- NOTE | 2019-10-29 20:52 | ER Document Report ---
ED Extremity Problem, Lower - General Chief Complaint: Leg Swelling Stated Complaint: LEFT LEG PAIN/SWOLLEN Time Seen by Provider: 10/29/19 19:11 Primary Care Provider: ISAAK MOJICA DO [Primary Care Provider] - Follow up as needed Mode of Arrival: Wheelchair Notes: 19-year-old female presents with left leg swelling and discoloration that started this morning. Patient states she has had some numbness starting from her upper top thigh down to her. Patient is also complaining of some difficulty with urinating. Patient denies any chest pain, shortness of breath, injury, fever. Patient was recently started on control last week and also had Nexplanon placed. Patient's sister and grandfather both have history of blood clots. Patient denies any personal history of DVT or PE. TRAVEL OUTSIDE OF THE [place] IN LAST 30 DAYS: No - Related Data Allergies/Adverse Reactions: No Known Allergies Allergy (Verified 10/29/19 19:07) Past Medical History - General Information source: Patient - Social History Smoking Status: Unknown if Ever Smoked Frequency of alcohol use: None Drug Abuse: None Family History: Reviewed & Not Pertinent Patient has suicidal ideation: No Patient has homicidal ideation: No Renal/ Medical History: Denies: Hx Peritoneal Dialysis Review of Systems - Review of Systems Notes: Constitutional: Negative for fever. HENT: Negative for sore throat. Eyes: Negative for visual changes. Cardiovascular: Negative for chest pain. Respiratory: Negative for shortness of breath. Gastrointestinal: Negative for abdominal pain, vomiting or diarrhea. Genitourinary: Positive for difficulty urinating. Negative for dysuria. Musculoskeletal: Positive for leg swelling and discoloration. Negative for back pain. Skin: Negative for rash. Neurological: Negative for headaches, weakness or numbness. 10 point ROS negative except as marked above and in HPI. Physical Exam - Vital signs Vitals: Temp Pulse Resp BP Pulse Ox 98.2 F 122 H 20 109/74 98 10/29/19 18:59 10/29/19 18:59 10/29/19 18:59 10/29/19 18:59 10/29/19 18:59 - Notes Notes: GENERAL: Well-appearing, well-nourished and in no acute distress. HEAD: Atraumatic, normocephalic. EYES: Extraocular movements intact, sclera anicteric, conjunctiva are normal. NECK: Normal range of motion, supple without lymphadenopathy or JVD. LUNGS: Breath sounds clear to auscultation bilaterally and equal. No wheezes rales or rhonchi. HEART: Regular rate and rhythm without murmurs, rubs or gallops. EXTREMITIES: Normal range of motion, no pitting. No clubbing or cyanosis. Left leg: Swelling noted to left leg, distal pedal pulses 2+, mild discoloration noted NEUROLOGICAL: Cranial nerves II through XII grossly intact. Normal speech, normal gait. PSYCH: Normal mood, normal affect. SKIN: Warm, Dry, normal turgor, no rashes or lesions noted. - Extremities Left calf in cm: 48 Right calf in cm: 45 Course - Re-evaluation Re-evalutation: 10/29/19 19-year-old female presents with left leg swelling that started this morning. Patient was recently started on control and a Nexplanon placed last week. Patient denies any chest pain or dyspnea. Patient's sister and grandfather both have had blood clots in the past. Patient denies any history of DVT or PE. Ultrasound was ordered. solar lab technician states DVT from common femoral to popliteal on the left. 10/29/19 20:54 Discussed results with pt and pt's . Pt requests to be transferred to [facility] if needing to be transferred. Pt's is [employer]. 10/29/19 21:[address] Dawson, radiologist, who states pt has extensive DVT which extends most likely into iliac vein. Dr. Dawson recommends transferring pt to a place where interventional radiology would be able to cons ider recanalizing the vein or placing stent. 10/29/19 21:05 Contacted [facility] to possibly initiate transfer if they have the resources available. 10/29/19 21:19 Discussed radiologist's recommendations with pt and pt's and pending transfer to [facility] and if not having resources possible transfer to either [facility] or [facility]. Pt and pt's voice understanding and a gree with plan of care. Also discussed with Dr. Ham, attending, who agrees with plan of care. 10/29/19 21:[address] Hayden, emergency medicine doctor, at [facility] who states they do not have IR or vascular capabilities. 10/29/19 21:47 Contacted [facility] to initiate transfer. 10/29/19 22:[address] Correa, medicine at [facility], who requested I talk to IR or vascular at [facility]. 10/29/19 22:[address] Stevie Zavala, vascular surgeon at [facility], who accepted to his service. Requesting maintenance fluids and keeping pt NPO. 10/29/19 22:33 Discussed transfer to [facility] and acceptance with pt and pt's who agree with plan of care. 10/30/19 03:03 Transport here. Pt's vitals WNL. Nontoxic, well appearing. Continues to be stable. - Vital Signs Vital signs: Temp Pulse Resp BP Pulse Ox 98.2 F 122 H 12 112/78 99 10/29/19 19:08 10/29/19 19:08 10/30/19 02:34 10/30/19 02:34 10/30/19 02:34 - Laboratory Result Diagrams: 10/29/19 19:46 10/29/19 19:46 Laboratory results interpreted by me: 10/29/19 10/29/19 10/29/19 19:46 19:46 22:55 Hgb 11.7 L Hct 34.7 L RDW 15.4 H Glucose 116 H Urine Protein 30 H Urine Blood MODERATE H Urine Urobilinogen 4.0 H Discharge - Discharge Clinical Impression: Deep vein thrombosis (DVT) of femoral vein of left lower extremity Qualifiers: Chronicity: acute Qualified Code(s): I82.412 - Acute embolism and thrombosis of left femoral vein Condition: Stable Disposition: [facility] Admitting Provider: Dr. Stevie Zavala Referrals: ISAAK MOJICA DO [Primary Care Provider] - Follow up as needed
[2019-10-29 20:55] LABS: INTERNATIONAL RATION (INR) 1.11; PROTHROMBIN TIME 14.3 SEC (11.4-15.4)
[2019-10-29 20:56] LABS: PARTIAL THROMBOPLASTIN TIME 29.9 SEC (23.5-35.8)
[2019-10-29] MEDS ORDERED: ENOXAPARIN SODIUM INJ 60 MG/0.6 ML DISP.SYRIN SUBCUT SCH (22:00)
[2019-10-29] MEDS ORDERED: NORMAL SALINE 1000 ML 1,000 ML IV ONE (22:27)
[2019-10-29 23:18] LABS: APPEARANCE,URINE CLEAR; BILIRUBIN,URINE NEGATIVE (NEGATIVE); COLOR,URINE YELLOW; GLUCOSE, URINE NEGATIVE (NEGATIVE); KETONES,URINE NEGATIVE (NEGATIVE); LEUKOCYTE ESTERASE,URINE NEGATIVE (NEGATIVE); NITRITE,URINE NEGATIVE (NEGATIVE); PROTEIN,URINE 30 mg/dL (NEGATIVE); URINE SPECIFIC GRAVITY 1.031
--- NOTE | 2019-10-30 00:50 | XCELERA REPORT ---
[address] [address] Lower Extremity Venous Evaluation Procedure: Color flow and duplex imaging of the veins of the left lower extremity as well as the right Common Femoral vein. Right Sided Venous Evaluation The right common femoral vein is fully compressible. Spontaneous and phasic flow is present in the right common femoral vein. Left Sided Venous Evaluation Abnormal vessel filling, no compression or Colour flow , enlarged veins with slow movement of blood, from Common Femoral down to the Popliteal veins. Critical Findings Discussed with JOSE Welsh. This patient should be considered for endovenous evaluation, treatment dure to likely Iliac vein involvement. Interpretation Summary Findings of Deep venous thrombosis, and or very slow blood flow, suggesting Cephalad stenosis or obstruction. In the left lower extremity. May Thurner or similar syndromes to be considered. Name: KATHLEEN MARSHALL Age: 19 yrs Gender: Female : 2000 Patient Status: Emergency Patient Location: ER Study Date: 10/29/2019 08:11 PM Reason For Study: numb swelling discolored Ordering Physician: EVANGELINA MANN Performed By: Simona Lane : EVANGELINA MANN > David Dawson
[2019-10-30] MEDS ORDERED: MORPHINE SULFATE 10 MG/ML INJ IV ONE (02:08)
[2019-10-30 03:06] VITALS: BP 110/71
== END 2019-10-30 03:15 | disposition short-term general hospital (02) ==
LOC: ER 18:55
DX: I82.412 Acute embolism and thrombosis of left femoral vein (principal); R39.9 Unspecified symptoms and signs involving the genitourinary system; Z97.5 Presence of (intrauterine) contraceptive device; Z82.49 Family history of ischemic heart disease and other diseases of the circulatory system
CPT/HCPCS: 36415; 85025; 85610; 85730; 81025; 80053; 81001; 93971 ×2; J2270; J7030; J1650; 96361; 96372; 96374; 99284

== ENCOUNTER 2020-07-03 10:18 | Emergency (ER) | payer OTHER ==
[2020-07-03] MEDS ORDERED: NORMAL SALINE 1000 ML 1,000 ML IV ONE ×3 (10:39→12:29)
[2020-07-03] MEDS ORDERED: KETOROLAC TROMETHAMINE INJ/PF 30 MG/1 ML SDV IV ONE ×2 (11:14→15:23)
[2020-07-03] MEDS ORDERED: ONDANSETRON HCL INJ/PF 4 MG/2 ML SDV IV ONE (11:14)
[2020-07-03] MEDS ORDERED: METHYLPREDNISOLONE INJ 125 MG/2 ML SDV IV ONE (11:15)
[2020-07-03] MEDS ORDERED: ACETAMINOPHEN SUSP 160 MG/5 ML ORAL SYRING PO ONE (11:21)
[2020-07-03 11:37] LABS: HEMATOCRIT 40.3 % (36.0-47.0); HEMOGLOBIN 13.8 g/dL (12.0-15.5); MEAN CORPUSCULAR HEMOGLOBIN 29.6 pg (27.0-33.4); MEAN CORPUSCULAR HGB CONC 34.1 g/dL (32.0-36.0); MEAN CORPUSCULAR VOLUME 87 fl (80-97); PLATELET COUNT 278 10^3/uL (150-450); RED BLOOD COUNT 4.65 10^6/uL (3.72-5.28); RED CELL DISTRIBUTION WIDTH 13.4 % (11.5-14.0); WHITE BLOOD COUNT 16.6 10^3/uL (4.0-10.5)
[2020-07-03 12:02] LABS: ALBUMIN 4.4 g/dL (3.5-5.0); ALKALINE PHOSPHATASE 59 U/L (38-126); ANION GAP 14 (5-19); ASPARTATE AMINO TRANSFERASE 20 U/L (14-36); BILIRUBIN,TOTAL 0.7 mg/dL (0.2-1.3); BLOOD UREA NITROGEN 10 mg/dL (7-20); CALCIUM 9.5 mg/dL (8.4-10.2); CARBON DIOXIDE 27 mmol/L (22-30); CHLORIDE 98 mmol/L (98-107); GLUCOSE 128 mg/dL (75-110); TOTAL PROTEIN 8.2 g/dL (6.3-8.2)
[2020-07-03 12:05] LABS: ABSOLUTE LYMPHOCYTES# (MANUAL) 0.3 10^3/uL (0.5-4.7); ABSOLUTE MONOCYTES # (MANUAL) 0.5 10^3/uL (0.1-1.4); BAND NEUTROPHILS % (MANUAL) 4 % (3-5); BASOPHILS % (MANUAL) 0 % (0-2); EOSINOPHILS % (MANUAL) 0 % (0-6); LYMPHOCYTES % (MANUAL) 2 % (13-45); MONOCYTES % (MANUAL) 3 % (3-13); SEGMENTED NEUTROPHILS % (MAN) 91 % (42-78); TOTAL CELLS COUNTED 100
[2020-07-03 12:06] LABS: PLATELET COMMENT ADEQUATE; RBC MORPHOLOGY COMMENT NORMO-CYTIC/CHROMIC
--- NOTE | 2020-07-03 12:28 | ER Document Report ---
Entered by HOLLY JUÁREZ SCRIBE 07/03/20 1113 Acting as scribe for:MONICO OSEI MD ED ENT - General Chief Complaint: Fever Stated Complaint: FEVER,SORE THROAT,VOMITING Time Seen by Provider: 07/03/20 11:00 Mode of Arrival: Ambulatory Information source: Patient Notes: This 20 year old female patient presents to the emergency department today with complaints of a sore throat with vomiting, headache, and fevers since yesterday morning. She reports that she feels short of breath because she feels like she is having difficulty breathing due to throat swelling. TRAVEL OUTSIDE OF THE [place] IN LAST 30 DAYS: No - Related Data Allergies/Adverse Reactions: No Known Allergies Allergy (Verified 10/29/19 19:07) Past Medical History - General Information source: Patient - Social History Smoking Status: Former Smoker - quit oct 2019 Cigarette use (# per day): No Frequency of alcohol use: None Drug Abuse: None Lives with: Family Family History: Reviewed & Not Pertinent - Past Medical History Cardiac Medical History: Reports: Hx DVT Past Surgical History: Reports: Hx Vascular Surgery - DVT clot lysis/retrieval Review of Systems - Review of Systems Constitutional: See HPI, Fever EENT: See HPI, Throat pain, Difficulty swallowing, Throat swelling Cardiovascular: No symptoms reported Respiratory: See HPI, Short of breath Gastrointestinal: See HPI, Vomiting Genitourinary: No symptoms reported Female Genitourinary: No symptoms reported Musculoskeletal: No symptoms reported Skin: No symptoms reported Hematologic/Lymphatic: No symptoms reported Neurological/Psychological: See HPI, Headaches -: Yes All other systems reviewed and negative Physical Exam - Vital signs Vitals: Temp Pulse Resp BP Pulse Ox 99.1 F 155 H 20 111/74 99 07/03/20 10:26 07/03/20 10:26 07/03/20 10:26 07/03/20 10:26 07/03/20 10:26 - Notes Notes: Physical Exam: General: Alert, appears uncomfortable. HEENT: Normocephalic. Atraumatic. PERRL. Extraocular movements intact. Oropharynx clear. Nasal sinus congestion. Voice is a little muffled and hoarse sounding. Tonsils are cryptic, red, with exudate bilaterally. There is no uvular or tonsillar pillar edema. Neck: Supple. Non-tender. Respiratory: No respiratory distress. Clear and equal breath sounds bilaterally. Cardiovascular: Tachycardic, regular rhythm. Abdominal: Obese. Non-tender. No distension. Normal Bowel Sounds. Back: No gross abnormalities. Extremities: Moves all four extremities. Upper extremities: Normal inspection. Normal ROM. Lower extremities: Normal inspection. No edema. Normal ROM. Neurological: Normal cognition. AAOx4. Normal speech. Psychological: Normal affect. Normal Mood. Skin: Warm. Dry. Normal color. Course - Re-evaluation Re-evalutation: 07/03/20 13:19 Urine specific gravity is 1.032 after 2 liters of IV fluids. - Vital Signs Vital signs: Temp Pulse Resp BP Pulse Ox 98.6 F 160 H 18 115/72 96 07/03/20 12:40 07/03/20 10:30 07/03/20 14:01 07/03/20 14:01 07/03/20 14:01 - Laboratory Result Diagrams: 07/03/20 11:00 07/03/20 11:00 Laboratory results interpreted by me: 07/03/20 07/03/20 07/03/20 11:00 11:00 12:45 WBC 16.6 H Seg Neuts % (Manual) 91 H Lymphocytes % (Manual) 2 L Abs Neuts (Manual) 15.8 H Abs Lymphs (Manual) 0.3 L Glucose 128 H Urine Protein 100 H Urine Blood MODERATE H Urine Urobilinogen 2.0 H - Diagnostic Test Radiology reviewed: Image reviewed, Reports reviewed - CT scan of the neck soft tissues shows findings consistent with acute tonsillitis. - EKG Interpretation by Me EKG shows normal: Sinus rhythm, [place], Intervals, QRS Complexes. abnormal: ST-T Waves - Diffuse borderline ST depression Rate: Tachycardia - 142 [place]/QRS: IVCD Discharge - Discharge Clinical Impression: Tonsillitis, Dehydration, Tachycardia Fever Qualifiers: Fever type: unspecified Qualified Code(s): R50.9 - Fever, unspecified Condition: Stable Disposition: HOME, SELF-CARE Additional Instructions: Tonsillitis Tonsillitis is infection of the tonsils. Symptoms include sore throat, difficulty swallowing, fever and aches, and tender lumps under the angle of the jaw. Tonsillitis can be caused by bacteria or viruses. Viral tonsillitis must get better on its own. Antibiotics don't help. The doctor may test for mononucleosis if symptoms last many days. We can only treat the symptoms. Bacterial tonsillitis is treated with antibiotics. It may take a few days before improvement occurs. It's important to take all the antibiotics. Take acetaminophen or ibuprofen for pain and fever. Sip frequent clear liquids, or use popsicles or ice chips. Anesthetic sprays or lozenges may help a little (the pain of tonsillitis is deep, and isn't helped much by numbing the surface). Make sure the air in the room is not too dry. Avoid using decongestants or antihistamines. Tonsillectomy may be necessary if you have several episodes of tonsillitis within a couple of years, or if there are complications from your tonsillitis. It's usually not needed. Call the doctor if there is no improvement in two days, or if you have difficulty breathing, increasing throat pain, high fever, rash, or frequent vomiting. Take the medications as prescribed. Drink plenty of fluids and get plenty of rest. Take Tylenol and ibuprofen for pain and fever. Follow-up with your primary care provider if not improving over the next few days. RETURN TO THE EMERGENCY ROOM IF ANY NEW OR WORSENING SYMPTOMS. Prescriptions: Prednisone [Deltasone 10 mg Tablet] 10 mg PO ASDIR PRN #21 tablet PRN Reason: Cephalexin Monohydrate [Keflex 500 mg Capsule] 500 mg PO TID #30 capsule I personally performed the services described in the documentation, reviewed and edited the documentation which was dictated to the scribe in my presence, and it accurately records my words and actions.
[2020-07-03 13:10] LABS: APPEARANCE,URINE CLOUDY; BILIRUBIN,URINE NEGATIVE (NEGATIVE); GLUCOSE, URINE NEGATIVE (NEGATIVE); KETONES,URINE NEGATIVE (NEGATIVE); LEUKOCYTE ESTERASE,URINE NEGATIVE (NEGATIVE); NITRITE,URINE NEGATIVE (NEGATIVE); PROTEIN,URINE 100 mg/dL (NEGATIVE); URINE SPECIFIC GRAVITY 1.032
[2020-07-03 13:12] LABS: COLOR,URINE YELLOW
[2020-07-03] MEDS ORDERED: DEXTROSE 5%-LACTATED RINGERS 1,000 ML IV ONE ×2 (13:18→13:21)
--- NOTE | 2020-07-03 15:12 | RADIOLOGY REPORT (SQ) ---
EXAM DESCRIPTION: CT SOFT TISSUE NECK WITH IMAGES COMPLETED DATE/TIME: 07/03/2020 2:46 pm REASON FOR STUDY: Leukocytosis, fever, throat swelling COMPARISON: None. TECHNIQUE: Post IV contrasted scanning from skull base through lung apices with review of bone, soft tissue and lung windows. Reconstructed coronal and sagittal MPR images reviewed. All images stored on PACS. All CT scanners at this facility use dose modulation, iterative reconstruction, and/or weight based d osing when appropriate to reduce radiation dose to as low as reasonably achievable (ALARA). [facility]: Dose Right [facility]: CareDose [facility]: Dose Right [facility]: Teradose 4D [facility]: [employer] CONTRAST TYPE AND DOSE: Contrast/concentration: Isovue 350.00 mmol/ml; Total Contrast Delivered: 75. 0 ml; Total Saline Delivered: 44.9 ml RENAL FUNCTION: None required. The patient is less than 50 years old. RADIATION DOSE: CT Rad equipment meets quality standard of care and radiation dose reduction techniq ues were employed. CTDIvol: 22.1 mGy. DLP: 782 mGy-cm. LIMITATIONS: None. FINDINGS: SKULL BASE: Intact. MAJOR SALIVARY GLANDS: No abnormality or asymmetry of the parotid and submandibular glands. LYMPHADENOPATHY: There are enlarged and borderline enlarged bilateral level IB, IIa and IIb lymph nod es that on the right measure up to 11 mm in short axis diameter on the left measure up to 14 mm in sh ort axis diameter. MUCOSAL MASSES OR ASYMMETRY: The palatine tonsils are enlarged and demonstrate heterogeneous enhancem ent ; the tonsils "kiss" in the midline. There is no tonsillar or peritonsillar abscess. LARYNX/CORDS: No abnormality. VASCULAR STRUCTURES: Patent. LUNG APICES: Clear. BONES: Intact. THYROID: No abnormality. PARANASAL SINUSES: Clear. OTHER: No other finding. IMPRESSION: Enlarged heterogeneously enhancing palatine tonsils and associated adenopathy. These fi ndings are consistent with an acute tonsillitis. There is no tonsillar or peritonsillar abscess TECHNICAL DOCUMENTATION: JOB ID: [id number] Quality ID # [id number]: Final reports with documentation of one or more dose reduction techniques (e.g., Au tomated exposure control, adjustment of the mA and/or kV according to patient size, use of iterative reconstruction technique) 2010 [employer]- All Rights Reserved Reading location - IP/workstation name: [email or web address]
[2020-07-03] MEDS ORDERED: CEFTRIAXONE 1 GM/D5W RTU 1 GM/50 ML RTUPB IV ONE (15:20)
[2020-07-03 15:38] VITALS: BP 105/75
--- NOTE | 2020-07-03 19:31 | EKG REPORT ---
SEVERITY:- ABNORMAL ECG - SINUS TACHYCARDIA NONSPECIFIC INTRAVENTRICULAR CONDUCTION DELAY INFERIOR Q WAVES, PROBABLY NORMAL VARIATION BORDERLINE ST DEPRESSION, DIFFUSE LEADS : Confirmed by: Kev Amaya 03-Jul-2020 19:30:14
== END 2020-07-03 16:40 | disposition home or self-care (01) ==
LOC: ER 10:18
DX: J03.90 Acute tonsillitis, unspecified (principal); E86.0 Dehydration; R00.0 Tachycardia, unspecified; R50.9 Fever, unspecified; R11.10 Vomiting, unspecified; R51 Headache; R06.02 Shortness of breath; Z87.891 Personal history of nicotine dependence
CPT/HCPCS: 93005; 96376; 99285; 96361; 96375; 96365; 36415; 87040; 87070; 87880; 84703; 85025; 87077; 86308; 80053; 81001; 70491; 93010; J2930; J1885; J2405; J7121; J7030; J0696

== ENCOUNTER 2020-07-07 14:32 | Emergency (ER) | payer OTHER ==
--- NOTE | 2020-07-07 15:03 | ER Document Report ---
ED Medical Screen (RME) - General Chief Complaint: Leg Pain Stated Complaint: LEG PAIN Time Seen by Provider: 07/07/20 15:00 Mode of Arrival: Ambulatory Information source: Patient Notes: 20-year-old female patient presents the emergency department chief complaint of left lower extremity pain. She states that she had a DVT in October, she had to have a stent placed for this, she is on Lovenox twice daily. She reports the pain started this morning, she states the pain is similar to when she had her DVT. Patient ambulated into the triage room. Patient has a stocking and a knee brace on, no obvious swelling is noted on initial exam. I have greeted and performed a rapid initial assessment of this patient. A comprehensive ED assessment and evaluation of the patient, analysis of test results and completion of the medical decision making process will be conducted by additional ED providers. I have specifically instructed the patient or family members with the patient to immediately return to any nursing staff should anything change in the patient's condition or with their chief complaint. TRAVEL OUTSIDE OF THE [place] IN LAST 30 DAYS: No - Related Data Allergies/Adverse Reactions: No Known Allergies Allergy (Verified 10/29/19 19:07) Past Medical History - Past Medical History Cardiac Medical History: Reports: Hx DVT Renal/ Medical History: Denies: Hx Peritoneal Dialysis Past Surgical History: Reports: Hx Vascular Surgery - DVT clot lysis/retrieval
--- NOTE | 2020-07-07 16:44 | ER Document Report ---
ED Extremity Problem, Lower - General Chief Complaint: Leg Pain Stated Complaint: LEG PAIN Time Seen by Provider: 07/07/20 15:00 Primary Care Provider: CHELO LOZOYA MD [Primary Care Provider] - Follow up as needed Mode of Arrival: Ambulatory Notes: 20-year-old female with past medical history of DVT presenting today with left hip and thigh pain with associated swelling of her left thigh. She is currently taking Lovenox 120 mg for DVT prophylaxis. She had a DVT in October. This DVT was from her common femoral all the way down to her popliteal. She ended up being transferred to [place] for additional treatment. Her surgeon was Dr. Zavala and her heme-onc doctor is Dr. Littlejohn. She has a follow-up with Dr. Littlejohn in approximately 3 weeks. She states she has difficulty walking and pain with walking. Intermittent numbness and tingling on left thigh. No saddle anesthesia. No loss of bowel or bladder. She denies any shortness of breath or chest pain at this time. She uses Nexplanon for control. She states she does have a low back pain or this is chronic since she has had the stent placement in her left femoral. Took Tylenol to help alleviate her pain. Is a non-smoker. no fevers chills or additional symptoms at this time. TRAVEL OUTSIDE OF THE [place] IN LAST 30 DAYS: No - Related Data Allergies/Adverse Reactions: No Known Allergies Allergy (Verified 10/29/19 19:07) Home Medications: trazodone, venlafaxine, lovenox Past Medical History - General Information source: Patient - Social History Smoking Status: Never Smoker Chew tobacco use (# tins/day): No Frequency of alcohol use: None Drug Abuse: None Family History: Reviewed & Not Pertinent - Past Medical History Cardiac Medical History: Reports: Hx DVT Renal/ Medical History: Denies: Hx Peritoneal Dialysis Past Surgical History: Reports: Hx Vascular Surgery - DVT clot lysis/retrieval Review of Systems - Review of Systems Constitutional: No symptoms reported EENT: No symptoms reported Cardiovascular: No symptoms reported Respiratory: No symptoms reported Gastrointestinal: No symptoms reported Genitourinary: No symptoms reported Female Genitourinary: No symptoms reported Musculoskeletal: See HPI Skin: See HPI Hematologic/Lymphatic: See HPI Neurological/Psychological: No symptoms reported Physical Exam - Vital signs Vitals: Temp 98.3 F 07/07/20 15:03 Interpretation: Normal - Notes Notes: Adult General: GENERAL: Alert, interacts well. No acute distress HEAD: Normocephalic, atraumatic EYES: Extraocular movements intact. ENT: Airway patent. Nares patent. NECK: Full range of motion. Supple. Trachea midline. No lymphadenopathy. LUNGS: Clear to auscultation bilaterally, no wheezes, rales, or rhonchi. No respiratory distress. Nontender chest wall. HEART: Regular rate and rhythm. No murmurs, rubs or gallops. ABDOMEN: Soft, nontender. Nondistended. (-) [place] sign. Bowel sounds present in all 4 quadrants. No rebound, guarding or masses. GENITOURINARY: Deferred EXTREMITIES: Moves all 4 extremities spontaneously. Mild swelling of left thigh. Left hip is tender. Pain with hip flexion and internal rotation. No ecchymosis. Normal bilaterally dorsal pedis pulses bilaterally. No cyanosis. BACK: No cervical, thoracic, lumbar midline tenderness. Low back is ttp along paraspinals. No saddle anesthesia, normal distal neurovascular exam. Moves all extremities with full range of motion. NEUROLOGICAL: Alert and oriented x3. Normal speech. Strength 5/ 5 in all extremities. PSYCH: Normal affect, normal mood. SKIN: Warm, dry, normal turgor. No rashes or lesions noted. Course - Re-evaluation Re-evalutation: 07/07/20 18:23 Venous doppler shows no SVT or DVT. I will xray the hip. Vitals signs are wnl. 07/07/20 19:02 X-ray shows no acute abnormalities. As her venous doppler is negative, I suspect that this is likely musculoskeletal in nature. I discussed this patient with Dr. Hurtado who also states this is likely musculoskeletal in nature. I will treat symptomatically at this time with pain medications. Patient was also asked to ambulate in the room. Is able to walk around the room without pain. I did consider a pelvic etiology of her symptoms but I do not feel this is the cause of her pain. She has no lower abdominal tenderness and pain is isolated to her left hip. I discussed with her to call her surgeon to hopefully move her appointment up sooner and to schedule a follow up with her primary care provider. I also discussed that she should return to the emergency department for worsening symptoms or development of new symptoms. Patient acknowledges and verbalizes understanding of instructions and plan. - Vital Signs Vital signs: Temp Pulse Resp BP Pulse Ox 98.4 F 68 16 122/84 100 07/07/20 19:13 07/07/20 19:13 07/07/20 19:13 07/07/20 19:13 07/07/20 19:13 - Laboratory Result Diagrams: 07/07/20 17:30 07/07/20 17:30 Laboratory results interpreted by me: 07/07/20 07/07/20 17:30 17:30 WBC 11.3 H Hgb 11.7 L Hct 35.1 L Albumin 3.3 L Discharge - Discharge Clinical Impression: Left hip pain, History of DVT (deep vein thrombosis) Condition: Stable Disposition: HOME, SELF-CARE Additional Instructions: I suspect her symptoms are due to the stent or due to muscular etiology. I prescribed you medications for your pain. Please follow-up with your primary care provider soon as possible. Please also call your surgeon to inform him of your symptoms. Please return to the emergency department for worsening symptoms or development of new symptoms. Prescriptions: Tramadol HCl [Ultram 50 mg Tablet] 50 mg PO Q4HP PRN #12 tab PRN Reason: Referrals: CHELO LOZOYA MD [Primary Care Provider] - Follow up as needed
[2020-07-07 17:48] LABS: ABSOLUTE LYMPHOCYTES (AUTO) 2.5 10^3/uL (0.5-4.7); ABSOLUTE NEUT (AUTO) 7.8 10^3/uL (1.7-8.2); BASOPHILS % (AUTO) 0.2 % (0-2); EOSINOPHILS % (AUTO) 0.1 % (0-6); HEMATOCRIT 35.1 % (36.0-47.0); HEMOGLOBIN 11.7 g/dL (12.0-15.5); LYMPHOCYTES % (AUTO) 22.4 % (13-45); MEAN CORPUSCULAR HEMOGLOBIN 28.9 pg (27.0-33.4); MEAN CORPUSCULAR HGB CONC 33.3 g/dL (32.0-36.0); MEAN CORPUSCULAR VOLUME 87 fl (80-97); MONOCYTES % (AUTO) 8.6 % (3-13); PLATELET COUNT 337 10^3/uL (150-450); RED BLOOD COUNT 4.04 10^6/uL (3.72-5.28); RED CELL DISTRIBUTION WIDTH 13.1 % (11.5-14.0); SEGMENTED NEUTROPHILS % (AUTO) 68.7 % (42-78); TOTAL CELLS COUNTED % (AUTO) 100 %; WHITE BLOOD COUNT 11.3 10^3/uL (4.0-10.5)
[2020-07-07 18:04] LABS: ALBUMIN 3.3 g/dL (3.5-5.0); ALKALINE PHOSPHATASE 49 U/L (38-126); ANION GAP 7 (5-19); ASPARTATE AMINO TRANSFERASE 16 U/L (14-36); BILIRUBIN,DIRECT 0.2 mg/dL (0.0-0.4); BILIRUBIN,TOTAL 0.3 mg/dL (0.2-1.3); BLOOD UREA NITROGEN 11 mg/dL (7-20); CALCIUM 8.8 mg/dL (8.4-10.2); CARBON DIOXIDE 28 mmol/L (22-30); CHLORIDE 104 mmol/L (98-107); GLUCOSE 94 mg/dL (75-110); POTASSIUM 4.3 mmol/L (3.6-5.0); TOTAL PROTEIN 6.5 g/dL (6.3-8.2)
--- NOTE | 2020-07-07 18:08 | RADIOLOGY REPORT (SQ) ---
EXAM DESCRIPTION: VENOUS UNILATERAL LOWER IMAGES COMPLETED DATE/TIME: 07/07/2020 5:56 pm REASON FOR STUDY: LLE pain, hx of DVT with stent COMPARISON: None. TECHNIQUE: Dynamic and static davies scale and color images acquired of the left leg venous system. Se lected spectral images acquired with additional compression and augmentation maneuvers. The contralat eral common femoral vein and saphenofemoral junction were also imaged. Images stored on PACS. LIMITATIONS: None. FINDINGS: COMMON FEMORAL: Normal phasicity, compression and augmentation. No visualized echogenic ma terial on davies scale. No defects on color images. FEMORAL: Normal compression and augmentation. No visualized echogenic material on davies scale. No defe cts on color images. POPLITEAL: Normal compression, augmentation. No visualized echogenic material on davies scale. No defec ts on color images. CALF VESSELS: Normal compression, augmentation. No visualized echogenic material on davies scale. No de fects on color images. GSV and SSV: Normal compression, augmentation. No visualized echogenic material on davies scale. No def ects on color images. ANY DEEP VENOUS INSUFFICIENCY: Not evaluated. ANY EVIDENCE OF POPLITEAL CYST: No. OTHER: No other significant finding. CONTRALATERAL COMMON FEMORAL VEIN AND SAPHENOFEMORAL JUNCTION: Normal phasicity, compression and augmentation. No visualized echogenic material on davies scale. No de fects on color images. IMPRESSION: NO EVIDENCE DVT OR SVT IN THE LEFT LEG. TECHNICAL DOCUMENTATION: JOB ID: [id number] 2010 [employer]- All Rights Reserved Reading location - IP/workstation name: [email or web address]
--- NOTE | 2020-07-07 18:43 | RADIOLOGY REPORT (SQ) ---
EXAM DESCRIPTION: PELVIS AP IMAGES COMPLETED DATE/TIME: 07/07/2020 6:32 pm REASON FOR STUDY: left hip pain COMPARISON: None. NUMBER OF VIEWS: One view TECHNIQUE: AP Pelvis LIMITATIONS: None. FINDINGS: MINERALIZATION: Normal. HIPS: No acute fracture or dislocation. No worrisome bone lesions. PELVIS AND SACRUM: No acute fracture or dislocation. No worrisome bone lesions. PUBIS AND ISCHIUM: No acute fracture. LOWER LUMBAR SPINE: No significant findings as visualized. SOFT TISSUES: Long segment left iliac stent. OTHER: No other significant finding. IMPRESSION: No acute osseous findings.Long segment left iliac stent. COMMENT: Pelvic fractures are often occult on plain radiographs. If strong clinical suspicion for f racture, recommend CT or MR. TECHNICAL DOCUMENTATION: JOB ID: [id number] [place]-[id number] 2010 [employer] +- All Rights Reserved Reading location - IP/workstation name: [email or web address]
[2020-07-07] MEDS ORDERED: TRAMADOL HCL 50 MG TABLET PO ONE (18:55)
[2020-07-07 19:15] VITALS: BP 122/84
== END 2020-07-07 19:13 | disposition home or self-care (01) ==
LOC: ER 14:32
DX: M25.552 Pain in left hip (principal); M79.652 Pain in left thigh; M79.89 Other specified soft tissue disorders; R20.0 Anesthesia of skin; R20.2 Paresthesia of skin; M54.5 Low back pain; G89.29 Other chronic pain; Z79.899 Other long term (current) drug therapy; Z86.718 Personal history of other venous thrombosis and embolism; Z95.820 Peripheral vascular angioplasty status with implants and grafts; Z79.01 Long term (current) use of anticoagulants; Z97.5 Presence of (intrauterine) contraceptive device
CPT/HCPCS: 36415; 72170; 80053; 85025; 93971; 99284

== ENCOUNTER 2020-08-20 20:08 | Emergency (ER) | payer OTHER ==
[2020-08-20 20:14] VITALS: BP 134/86
--- NOTE | 2020-08-20 20:55 | ER Document Report ---
HPI - HPI Patient complains to provider of: Sore throat, ear pain Time Seen by Provider: 08/20/20 20:36 Context: 20-year-old female past medical history significant for a blood clotting disorder presents to the emergency room complaining of a sore throat for the past week. States that now radiates into her left ear. Has been using Mucinex and Tylenol without relief. No fevers. Eating and drinking normally. No known ill contacts. No travel. No COVID-19 exposure. Associated Symptoms: None Exacerbated by: Denies Relieved by: Denies Similar symptoms previously: No Recently seen / treated by doctor: No - ROS Systems Reviewed and Negative: Yes All other systems reviewed and negative - CONSTITUTIONAL Constitutional: DENIES: Fever - EENT EENT: REPORTS: Sore Throat, Ear Pain - NEURO Neurology: REPORTS: Headache. DENIES: Weakness - RESPIRATORY Respiratory: DENIES: Trouble Breathing, Coughing - REPRODUCTIVE Reproductive: DENIES: : - DERM Skin Color: Normal Skin Problems: None Past Medical History - General Information source: Patient - Social History Smoking Status: Never Smoker Frequency of alcohol use: Occasional Drug Abuse: None Family History: Reviewed & Not Pertinent - Past Medical History Cardiac Medical History: Reports: Hx DVT Renal/ Medical History: Denies: Hx Peritoneal Dialysis Past Surgical History: Reports: Hx Vascular Surgery - DVT clot lysis/retrieval Vertical Provider Document - CONSTITUTIONAL Agree With Documented VS: Yes Exam Limitations: No Limitations General Appearance: Mild Distress Notes: VITAL SIGNS: Within normal limits. GENERAL: Mild acute distress, non-toxic appearance. HEAD: Normal with no signs of head trauma. EYES: PERRLA, EOMI, conjunctiva normal, no discharge. EARS: Hearing grossly intact. Tympanic membranes intact bilaterally without any erythema or bulging. Bilateral outer nails without erythema or swelling. NOSE: Normal. Turbinates are not erythematous, clear discharge is noted. Sinuses are nontender to palpation. THROAT: Oropharynx is normal. No pharyngeal erythema, no exudate. No tonsillar enlargement. NECK: Normal range of motion, no tenderness, supple, no lymphadenopathy, No adenopathy, no JVD. Negative Meningismus, Negative brudzzinski, Negative Kernig's CHEST: Clear breath sounds bilaterally. No wheezes, rales, or rhonchi. CARDIAC: Regular rate and rhythm. S1 and S2, without murmurs, gallops, or rubs. VASCULAR: No Edema. Peripheral pulses normal and equal in all extremities. ABDOMEN: Normal and soft with no tenderness, no masses or pulsatile masses. GASTROINTESTINAL: Bowel sounds normal GENITOURINARY: Normal, No tenderness LYMPATHTIC: No lymphadenopathy noted. MUSCULOSKELETAL: Good range of motion of all major joints. Extremities without clubbing, cyanosis or edema. NEUROLOGICAL: Alert and oriented x 3. No focal sensory or strength deficits. Speech normal. Follows commands appropriately. PSYCHIATRIC: Normal Affect, judgement and mood. SKIN: Normal appearance with no rashes or lesions. - INFECTION CONTROL TRAVEL OUTSIDE OF THE [place] IN LAST 30 DAYS: No Course - Re-evaluation Re-evalutation: 08/20/20 22:11 Patient is afebrile, nontoxic-appearing, able to tolerate p.o. fluids. Reviewed negative strep and negative mono test results with patient. Counseled on viral illness. Supportive therapy. Outpatient follow-up primary care physician if not proving 2 to 3 days. Patient was given strict return to the emergency room guidelines. Return for any new or worsening symptoms. All questions were answered. Patient verbalized understanding and agrees with plan of care. - Vital Signs Vital signs: Temp Pulse Resp BP Pulse Ox 98.6 F 98 20 134/86 H 96 08/20/20 20:12 08/20/20 20:12 08/20/20 20:12 08/20/20 20:12 08/20/20 20:12 Discharge - Discharge Clinical Impression: Sore throat URI (upper respiratory infection) Qualifiers: URI type: unspecified URI Qualified Code(s): J06.9 - Acute upper respiratory infection, unspecified Condition: Stable Disposition: HOME, SELF-CARE Instructions: Sore Throat ([facility]), Upper Respiratory Illness ([facility]) Additional Instructions: Encourage fluids. Tylenol and or Motrin if needed for fevers and/or pain. Supportive therapy. Your symptoms are most likely due to a viral infection it should resolve over the next 7-14 days. You should take rgwg-dxp-ecduyny guanfacine per bottle instructions to help thin the mucus. For nasal congestion: I would recommend that you get [id number]-wdpegax oxymetazoline also known is afrin. Use only per bottle instructions and be sure to never use this for more than 3 days if you can develop severe rebound congestion. You may also use tylenol or ibuprofen as needed for aches and thorat discomfort. Please be sure to drink plenty of fluids and get rest. Return to the emergency department he began having difficulty breathing, chest pain, persistent vomiting, or any other symptoms that are concerning to you. Referrals: CHELO LOZOYA MD [Primary Care Provider] - Follow up as needed
== END 2020-08-20 22:20 | disposition home or self-care (01) ==
LOC: ER 20:08
DX: J02.9 Acute pharyngitis, unspecified (principal); J06.9 Acute upper respiratory infection, unspecified; H92.09 Otalgia, unspecified ear; R51.9 Headache, unspecified
CPT/HCPCS: 36415; 86308; 87070; 87077; 87880; 99282

== ENCOUNTER 2020-11-07 09:33 | Day surgery (SDC) | payer OTHER ==
[~2020-11-07 09:33] MED LIST: AMPICILLIN SODIUM 2 GM in NORMAL SALINE 100 ML IV PRN
[2020-11-07] MEDS ORDERED: DEXAMETHASONE SOD PHOS INJ 10 MG/1 ML VIAL ONE (10:30)
[2020-11-07] MEDS ORDERED: HYDROMORPHONE HCL INJ/PF 2 MG/ML AMPULE ONE (10:30)
[2020-11-07] MEDS ORDERED: ONDANSETRON HCL INJ/PF 4 MG/2 ML SDV ONE ×2 (10:30→12:37)
[2020-11-07] MEDS ORDERED: MIDAZOLAM 2 MG/2 ML INJ ONE (10:30)
[2020-11-07] MEDS ORDERED: FENTANYL CITRATE INJ/PF 100 MCG/2 ML AMPUL ONE (10:30)
[2020-11-07] MEDS ORDERED: PROPOFOL INJ 200 MG/20 ML VIAL IV ONE (10:31)
[2020-11-07] MEDS ORDERED: SUCCINYLCHOLINE CHLORIDE INJ 200 MG/10 ML VIAL ONE (10:31)
[2020-11-07] MEDS ORDERED: OXYMETAZOLINE HCL 0.05% NASAL SPRAY 15 ML BOTTLE ONE (10:32)
--- NOTE | 2020-11-07 12:28 | Operative Report ---
Operative Report-[facility] Operative Report: Date: 07 November 2020 History: 20-year-old female with a history of sleep-related breathing disorder, obstructive adenotonsillar hypertrophy, eustachian tube dysfunction and chronic serous otitis media of left ear presents today for a left myringotomy with tympanostomy tube placement and adenotonsillectomy. Informed consent was obtained from the patient. Preoperative Diagnosis: 1. Chronic serous otitis media 2. Eustachian tube dysfunction 3. Obstructive Adenotonsillar Hyptertrophy 4. Sleep related breathing disorder Post operative Diagnosis: Same as above Procedure: 1. Left myringotomy with tympanostomy tube placement 2. Adenotonsillectomy Surgeon: Reggie Rashid MD, FACS, FCCP Anesthesia: General via Endotrachreal intubation Procedure: After receiving informed consent from the patient, the patient was brought to the operating room and placed supine on the operating table. After successful induction and intubation by anesthesia, the operating microscope was brought into the field. Under binocular microscopy the left ear was turned superiorly and a properly sized speculum was placed into the external auditory canal. Debris and cerumen were removed. The tympanic membrane was visualized and found to be dull with radial striations. There appeared to be fluid in the middle ear. A myringotomy knife was used to make a radial incision in the anterior inferior quadrant. Serous fluid suctioned from the middle ear space. A Daniel PE tube was placed in this incision. Otic drops were then placed into the external auditory canal. The patient was turned 90 degrees and placed in Trendelenburg. A shoulder roll was placed along with a head drape. The McIvor mouthgag was placed atraumatically in the oral cavity. This was then opened up. The soft palate was palpated and found to be normal. Red catheters were inserted down each nasal cavity and brought out to elevate the soft palate. Mirror was used to view the nasopharynx and the adenoid pad was found to be 4+ in size. Next, using the PEAK system and adenoidectomy was performed. Hemostasis was obtained using the same system. A nasopharygeal pack was then placed. Attention was then directed to the tonsils. The right tonsil was grasped using a tonsil tenaculum and pulled medially. It was dissected from its tonsillar fossa using bovie electrocauthery. Hemostasis was obtained using suction bovie electrocautery. A similar procedure was done on the left side. Both tonsils were removed. The tonsils were 4+. The nasopharyngeal pack was removed and the nasopharynx was viewed and was found to be dry. The nasopharynx along with the oral cavity and oropharynx was irrigated with copious amounts of normal saline. No bleeding was noted. An orogastric tube was inserted into the stomach and gastric contents was aspirated. The McIvor mouthgag was then let down and reopened, no bleeding was noted. The McIvor mouthgag along with the red catheter was removed from the patient. The patient tolerated the procedure well without any complication. Estimated blood loss: 10 mL Fluids: 1000 mL The patient was then given back to anesthesia who successfully recovered the patient. The patient was then transferred to the Post Anesthesia Care Unit in stable condition with spontaneous respirations.
== END 2020-11-07 13:19 | disposition home or self-care (01) ==
LOC: SC 09:33
PROVIDERS: ATTEND Otolaryngology
DX: J35.3 Hypertrophy of tonsils with hypertrophy of adenoids (principal); H65.22 Chronic serous otitis media, left ear; H69.82 Other specified disorders of Eustachian tube, left ear; J35.1 Hypertrophy of tonsils; J35.2 Hypertrophy of adenoids; J34.2 Deviated nasal septum; G47.30 Sleep apnea, unspecified; Z01.812 Encounter for preprocedural laboratory examination; Z20.828 Contact with and (suspected) exposure to other viral communicable diseases
CPT/HCPCS: 69436; 42821; 87635; 88304 ×2; J0290; J2250; J3010; J1170; J3490; J0330; J2405; J7050; J2704; J1100; C9803

== ENCOUNTER 2020-11-13 20:39 | Emergency (ER) | payer OTHER ==
--- NOTE | 2020-11-13 22:47 | RADIOLOGY REPORT (SQ) ---
INDICATION: left lower leg swelling hx of dvt in same leg. PROCEDURE: Real-time grayscale, color, and pulse Doppler ultrasound imaging of the left lower extremity deep venous system was performed. 44 static images. COMPARISON: July 07, 2020 FINDINGS: Occlusive and partially occlusive thrombus identified, and femoral through superficial femoral popliteal and into the gastrocnemius vein. This is presumed acute. Superficial thrombophlebitis of the greater saphenous vein proximally. The visualized deep calf veins otherwise appear patent. IMPRESSION: Acute deep venous thrombosis left common femoral vein through the calf. Superficial thrombophlebitis of the greater saphenous vein
--- NOTE | 2020-11-13 23:07 | ER Document Report ---
ED General - General Chief Complaint: Passed Out Prior to Arrival Stated Complaint: FAINTY Time Seen by Provider: 11/13/20 22:45 Primary Care Provider: [facility] [Primary Care Provider] - Follow up as needed GEOFFREY REAL MD [NO LOCAL MD] - Follow up in 3-5 days TRAVEL OUTSIDE OF THE [place] IN LAST 30 DAYS: No - HPI Notes: Patient is a 20-year-old female with a past medical history of DVT in the left leg 1 year ago status post stent placement in [place] who presents with left leg swelling that started this morning. Patient states that most of her pain is at the left thigh. She had her wisdom teeth removed in the beginning of the month and was off her Lovenox from October 22 to October 23. She also had her tonsils removed and was off her Lovenox from October 30 to November 09. She states that the reason she had a DVT last year was due to control pills. She states that today she was rushing around to come to the ER and had an episode of syncope that lasted several seconds. She did not fall or hit her head. Patient states that the paramedics told her that her blood pressure was low when this happened. She is absolutely denying any chest pain or shortness of breath. No fevers or chills. No cough or cold. No other symptoms. - Related Data Allergies/Adverse Reactions: Estrogens Allergy (Verified 08/20/20 22:22) Home Medications: lovenox Past Medical History - General Information source: Patient - Social History Smoking Status: Current Some Day Smoker Frequency of alcohol use: Rare Family History: Reviewed & Not Pertinent Patient has homicidal ideation: No - Past Medical History Cardiac Medical History: Reports: Hx DVT Denies: Hx Heart Attack, Hx Hypertension Pulmonary Medical History: Denies: Hx Asthma Neurological Medical History: Denies: Hx Cerebrovascular Accident, Hx Seizures Renal/ Medical History: Denies: Hx Peritoneal Dialysis GI Medical History: Denies: Hx Hepatitis, Hx Hiatal Hernia, Hx Ulcer Infectious Medical History: Denies: Hx Hepatitis Past Surgical History: Reports: Hx Vascular Surgery - DVT clot lysis/retrieval. Denies: Hx Mastectomy, Hx Open Heart Surgery, Hx Pacemaker Review of Systems - Review of Systems Notes: CONSTITUTIONAL: No fever, fatigue or weight loss. SKIN: No rash. HENT: No congestion, ear pain, or sore throat. CARDIOVASCULAR: No chest pain or edema. RESPIRATORY: No cough, shortness of breath, congestion, or wheezing. GASTROINTESTINAL: No abdominal pain, nausea, vomiting, bloody stools or diarrhea. MUSCULOSKELETAL: Positive for left leg pain and swelling. NEUROLOGIC: No seizures. No headache, focal weakness or sensory changes. Po sitive for syncope. HEMATOLOGIC: No unusual bruising or bleeding. PSYCHIATRIC: No depression or anxiety. Physical Exam - Vital signs Vitals: BP Pulse Ox 110/78 100 11/13/20 20:59 11/13/20 20:59 - General General appearance: Appears well In distress: None Notes: VITAL SIGNS: Within normal limits. GENERAL: No acute distress, non-toxic appearance. HEAD: Normal with no signs of head trauma. EYES: Conjunctiva normal, no discharge. EARS: Hearing grossly intact. NECK: Normal range of motion, no tenderness, supple, no lymphadenopathy, No adenopathy, no JVD. CHEST: Clear breath sounds bilaterally. No wheezes, rales, or rhonchi. CARDIAC: Regular rate and rhythm. VASCULAR: No Edema. Strong dorsalis pedis pulses in lower extremities bilaterally. ABDOMEN: Normal MUSCULOSKELETAL: Good range of motion of all major joints. Left lower extremity is swollen compared to the right. NEUROLOGICAL: Alert and oriented x 3. No focal sensory or strength deficits. Speech normal. Follows commands appropriately. PSYCHIATRIC: Normal Affect, judgement and mood. SKIN: Normal appearance with no rashes or lesions. Course - Re-evaluation Re-evalutation: 11/13/20 23:08 Patient sees a vascular surgeon in [place] that manages her DVT. I will try to contact them. 11/13/20 23:[address] Byron Rodriguez from vascular at [place], he recommended that she be discharged on her Lovenox dose and make sure she keeps taking it so she is adequately anticoagulated. She can follow-up in the office. 11/14/20 04:39 I also discussed with Dr. Mccord from oncology as her APTT was low. She states that she can continue her normal dose of Lovenox. I discussed all this with the patient. I offered to give her a dose of Lovenox tonight as she has not taken her nightly dose. Patient states she would rather take this at home tonight. S he states she feels much better. I discussed follow-up with the patient. She needs to follow-up with her entry level accounting clerk and her vascular surgeon. She is very agreeable to this. She is to return to the ER immediately for any return of symptoms. I do think her episode of syncope today is not related to the DVT. She states she was just really anxious when this happened. Patient was given strict return precautions. 11/14/20 04:41 - Vital Signs Vital signs: Temp Pulse Resp BP Pulse Ox 98.1 F 99 17 108/80 100 11/13/20 23:01 11/13/20 21:08 11/13/20 23:01 11/14/20 02:41 11/14/20 02:41 - Laboratory Results Result Diagrams: 11/13/20 23:44 11/13/20 23:44 Laboratory Results Interpreted: 11/13/20 11/13/20 11/13/20 23:44 23:44 23:44 Hgb 11.7 L Hct 33.6 L APTT 36.3 H Sodium 136.3 L Carbon Dioxide 31 H Critical Laboratory Results Reviewed: No Critical Results - Radiology Results Critical Radiology Results Reviewed: Yes Attending or Supervising Physician who Reviewed Radiology: ALMA ROSA ARNOLD - EKG Interpretation by [facility] EKG shows normal: Sinus rhythm Rate: Normal Rhythm: NSR When compared to previous EKG there are: No significant change Additional EKG results interpreted by me: 11/14/20 01:17 Sinus rhythm at a rate of 87. QTc 414. No acute ST changes. Discharge - Discharge Clinical Impression: Left femoral vein DVT Qualifiers: Chronicity: acute Qualified Code(s): I82.412 - Acute embolism and thrombosis of left femoral vein Syncope Qualifiers: Syncope type: vasovagal syncope Qualified Code(s): R55 - Syncope and collapse Condition: Stable Disposition: HOME, SELF-CARE Instructions: DVT Outpatient Treatment ([facility]) Additional Instructions: You have a left leg DVT. Please continue your Lovenox as prescribed. Make sure you take your Lovenox dose tonight when you get home. Please call your vascular surgeon and your entry level accounting clerk in [place] for follow-up. Please follow-up with them in the next week. Referrals: [facility] [Primary Care Provider] - Follow up as needed GEOFFREY REAL MD [NO LOCAL MD] - Follow up in 3-5 days
[2020-11-14 00:05] LABS: ABSOLUTE LYMPHOCYTES (AUTO) 1.1 10^3/uL (0.5-4.7); ABSOLUTE MONOCYTES (AUTO) 0.7 10^3/uL (0.1-1.4); ABSOLUTE NEUT (AUTO) 5.6 10^3/uL (1.7-8.2); BASOPHILS % (AUTO) 0.5 % (0-2); EOSINOPHILS % (AUTO) 0.5 % (0-6); HEMATOCRIT 33.6 % (36.0-47.0); HEMOGLOBIN 11.7 g/dL (12.0-15.5); INTERNATIONAL RATION (INR) 1.19; LYMPHOCYTES % (AUTO) 14.6 % (13-45); MEAN CORPUSCULAR HEMOGLOBIN 29.8 pg (27.0-33.4); MEAN CORPUSCULAR HGB CONC 34.9 g/dL (32.0-36.0); MEAN CORPUSCULAR VOLUME 85 fl (80-97); MONOCYTES % (AUTO) 9.3 % (3-13); PLATELET COUNT 287 10^3/uL (150-450); PROTHROMBIN TIME 15.3 SEC (11.4-15.4); RED BLOOD COUNT 3.93 10^6/uL (3.72-5.28); RED CELL DISTRIBUTION WIDTH 13.1 % (11.5-14.0); SEGMENTED NEUTROPHILS % (AUTO) 75.1 % (42-78); TOTAL CELLS COUNTED % (AUTO) 100 %; WHITE BLOOD COUNT 7.4 10^3/uL (4.0-10.5)
[2020-11-14 00:20] LABS: ALBUMIN 3.7 g/dL (3.5-5.0); ALKALINE PHOSPHATASE 57 U/L (38-126); ANION GAP 6 (5-19); ASPARTATE AMINO TRANSFERASE 18 U/L (14-36); BILIRUBIN,DIRECT 0.1 mg/dL (0.0-0.4); BILIRUBIN,TOTAL 0.6 mg/dL (0.2-1.3); BLOOD UREA NITROGEN 12 mg/dL (7-20); CARBON DIOXIDE 31 mmol/L (22-30); CHLORIDE 99 mmol/L (98-107); GLUCOSE 97 mg/dL (75-110); POTASSIUM 4.3 mmol/L (3.6-5.0); TOTAL PROTEIN 7.2 g/dL (6.3-8.2)
[2020-11-14 02:51] VITALS: BP 108/80
--- NOTE | 2020-11-14 17:57 | EKG REPORT ---
SEVERITY:- NORMAL ECG - SINUS RHYTHM : Confirmed by: Elliot Osullivan MD 14-Nov-2020 17:56:30
== END 2020-11-14 02:48 | disposition home or self-care (01) ==
LOC: ER 20:39
DX: R55 Syncope and collapse (principal); I82.412 Acute embolism and thrombosis of left femoral vein; F17.200 Nicotine dependence, unspecified, uncomplicated; Z88.8 Allergy status to other drugs, medicaments and biological substances
CPT/HCPCS: 36415; 80053; 84703; 85025; 85610; 85730; 93005; 93010; 93971; 99285